=== PATIENT | male | born 2000 | race Caucasian/White ===

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

== ENCOUNTER 2019-03-27 17:53 | Emergency (ER) | payer BC ==
[2019-03-27] MEDS ORDERED: Sodium Chloride 0.9% 1,000 ML IV ONE ×2 (18:16→19:15)
[2019-03-27] MEDS ORDERED: Sodium Chloride 0.9% 2.5 ML Syringe FLUSH PRN ×2 (18:16→18:29)
[2019-03-27] MEDS ORDERED: Sodium Chloride 0.9% 10 ML Syringe FLUSH PRN ×2 (18:16→18:29)
--- NOTE | 2019-03-27 18:20 | EDM.PDOC ---
ED HPI GENERAL MEDICAL PROBLEM - General Chief Complaint: General Stated Complaint: NAUSEOUS,FATIGUE,DIZZY Time Seen by Provider: 03/27/19 18:04 - History of Present Illness INITIAL COMMENTS - FREE TEXT/NARRATIVE: HISTORY AND PHYSICAL: History of present illness: The patient is a 18-year-old male follows with Dr. 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 The patient says that in the past he used to get IV fluids almost on a daily basis and then over the last year he has made some adjustments and changes in his diet and his behavioral lifestyle that have prevented him from getting fluids very often. He says over the last month he's been under more stress with work and has been more run down and now presents with feeling dehydrated lightheaded. He has persistent nausea and that is not new or different and he is not concerned about that and he is not passing out or blacking out. He has a chronic headache which is not new or different and again he is not worried about this. He has no abdominal pain and he has had slightly darker urine output of late. He's had no chest pain shortness of breath fevers or chills no runny nose and no urinary symptoms of dysuria frequency or flank pain. He has not had diarrhea. The patient says he just has generalized weakness and thinks he needs IV fluids. The patient has a history of a port that we can access at the left upper chest wall which was placed specifically for IV hydration. No focal weakness numbness or tingling and has not had any falls. The patient says that he is not having any abdominal pain currently. Review of systems: As per history of present illness and below otherwise all systems reviewed and negative. Past medical history: As per history of present illness and as reviewed below otherwise noncontributory. Surgical history: As per history of present illness and as reviewed below otherwise noncontributory. Social history: No reported history of drug or alcohol abuse. Family history: As per history of present illness and as reviewed below otherwise noncontributory. Physical exam: General: Well-developed well-nourished thin man who is nontoxic and ambulated into the ED without assistance. He has overall pale appearance HEENT: Atraumatic, normocephalic, pupils reactive, negative for conjunctival pallor or scleral icterus, mucous membranes moist, throat clear, neck supple, nontender, trachea midline. Lungs: Clear to auscultation, breath sounds equal bilaterally, chest nontender. Heart: S1S2, regular rate and rhythm no overt murmurs Abdomen: Soft, nondistended, nontender. Negative for masses or hepatosplenomegaly. Negative for costovertebral tenderness. Pelvis: Stable nontender. Genitourinary: Deferred. Rectal: Deferred. Extremities: Atraumatic, negative for cords or calf pain. Neurovascular unremarkable. Full range of motion without defects or deficits Neuro: Awake, alert, oriented. Cranial nerves II through XII unremarkable. Cerebellum unremarkable. Motor and sensory unremarkable throughout. Exam nonfocal. Diagnostics: CBC CMP magnesium level UA with reflex Therapeutics: port Access, IV fluids Patient was offered Zofran for nausea and something for his headache pain and he declines both as he says this is not new or different and he just wants the hydration. Patient has almost completed his first liter of fluids and asecond liter as he says he still feels a sense of generalized weakness. I will proceed to order the second liter and plan on discharge after that. He is comfortable with the care plan and will follow up with his provider Impression: Generalized weakness/lightheadedness/clinical dehydration with history of frequent dehydration Definitive disposition and diagnosis as appropriate pending reevaluation and review of above. Headache Pain Score (Numeric/FACES): 6 - Related Data Allergies Allergy/AdvReac Type Severity Reaction Status Date / Time adhesive Allergy Hives Verified 03/27/19 18:10 clarithromycin [From Biaxin] Allergy Nausea and Verified 03/27/19 18:10 Vomiting diazepam [From Valium] Allergy Hallucinati Verified 03/27/19 18:10 ons grass pollen-perennial rye, Allergy Hives Verified 03/27/19 18:10 standar [grass poll-perennial rye,std] Latex, Natural Rubber Allergy skin Verified 03/27/19 18:10 sensitivity lorazepam [From Ativan] Allergy Hyperactivi Verified 03/27/19 18:10 ty midazolam HCl [From Versed] Allergy Hallucinati Verified 03/27/19 18:10 ons silver Allergy skin Verified 03/27/19 18:10 [From Tegaderm AG Mesh] sensitivity Sulfa (Sulfonamide Allergy Hyperactivi Verified 03/27/19 18:10 Antibiotics) ty Past Medical History Other HEENT History: wears glasses Other Cardiovascular History: irregular heartrate and irregular BP, rheumatic fever x3 Respiratory History: Denies: Bronchopulmonary Dysplasia, Interstitial Lung Disease Other Respiratory History: garza disease, SOB at times Gastrointestinal History: Reports: Bowel Obstruction, Gastritis Genitourinary History: Reports: None Musculoskeletal History: Reports: None Other Musculoskeletal History: GARZA, arthritis, auto immune disfunction Neurological History: Reports: Other (See Below) Other Neuro History: Frontal Lobe Damage. Spinal Cord Problem Psychiatric History: Reports: ADHD, Anxiety, Depression, Eating Disorders, Emotional Problems, Learning Disability, OCD, Panic Attack Other Psychiatric History: Slight Autism Endocrine/Metabolic History: Reports: None Other Endocrine/Metabolic History: Hypoglycemic Hematologic History: Reports: None Immunologic History: Reports: Immunosuppression Oncologic (Cancer) History: Reports: None Other Dermatologic History: sensitive to adhesives - Infectious Disease History Infectious Disease History: Reports: Chicken Pox, Hepatitis A - Past Surgical History HEENT Surgical History: Reports: Adenoidectomy, Tonsillectomy GI Surgical History: Reports: Cholecystectomy, Colonoscopy, EGD, Hernia, Inguinal, Hernia Repair/Other, Hamilton Fundoplication Social & Family History - Family History Family Medical History: Noncontributory - Caffeine Use Caffeine Use: Reports: Soda - Living Situation & Occupation Living situation: Reports: Single, with Family ED ROS GENERAL - Review of Systems Review Of Systems: ROS reveals no pertinent complaints other than HPI. ED EXAM, GENERAL - Physical Exam Exam: See Below (See dictation) Course - Vital Signs Last Recorded V/S: Last Vital Signs Temp 36.2 C 03/27/19 18:05 Pulse 75 03/27/19 19:11 Resp 18 03/27/19 19:11 BP 107/66 03/27/19 19:11 Pulse Ox 100 03/27/19 19:11 - Orders/Labs/Meds Orders: Active Orders 24 hr Category Date Time Status Implanted Port Access [RC] DAILY Care 03/27/19 18:16 Inactive Sodium Chloride 0.9% [Normal Saline] 1,000 ml Med 03/27/19 18:16 Active IV STAT Sodium Chloride 0.9% [Normal Saline] 1,000 ml Med 03/27/19 19:15 Ordered IV STAT Sodium Chloride 0.9% [Saline Flush] Med 03/27/19 18:16 Active 10 ml FLUSH ASDIRECTED PRN Sodium Chloride 0.9% [Saline Flush] Med 03/27/19 18:29 Active 10 ml FLUSH ASDIRECTED PRN Sodium Chloride 0.9% [Saline Flush] Med 03/27/19 18:16 Active 2.5 ml FLUSH ASDIRECTED PRN Sodium Chloride 0.9% [Saline Flush] Med 03/27/19 18:29 Active 2.5 ml FLUSH ASDIRECTED PRN Saline Lock Insert [OM.PC] Stat Oth 03/27/19 18:15 Ordered Saline Lock Insert [OM.PC] Stat Ot 03/27/19 18:29 Ordered Medication Orders Sodium Chloride (Normal Saline) 1,000 mls @ 999 mls/hr IV STAT ONE Stop: 03/27/19 19:16 Last Admin: 03/27/19 18:35 Dose: 999 mls/hr Sodium Chloride (Saline Flush) 10 ml FLUSH ASDIRECTED PRN PRN Reason: Keep Vein Open Last Admin: 03/27/19 18:36 Dose: 10 ml Sodium Chloride (Saline Flush) 2.5 ml FLUSH ASDIRECTED PRN PRN Reason: Keep Vein Open Last Admin: 03/27/19 18:36 Dose: 2.5 ml Sodium Chloride (Saline Flush) 10 ml FLUSH ASDIRECTED PRN PRN Reason: Keep Vein Open Last Admin: 03/27/19 18:36 Dose: 10 ml Sodium Chloride (Saline Flush) 2.5 ml FLUSH ASDIRECTED PRN PRN Reason: Keep Vein Open Last Admin: 03/27/19 18:37 Dose: 2.5 ml Labs: Laboratory Tests 03/27/19 03/27/19 03/27/19 Range/Units 18:25 18:25 18:34 WBC 5.81 (4.0-11.0) K/uL RBC 5.16 (4.50-5.90) M/uL Hgb 15.4 (13.0-17.0) g/dL Hct 44.9 (38.0-50.0) % MCV 87.0 (80.0-98.0) fL MCH 29.8 (27.0-32.0) pg MCHC 34.3 (31.0-37.0) g/dL RDW Std Deviation 41.7 (28.0-62.0) fl RDW Coeff of Mee 13 (11.0-15.0) % Plt Count 270 (150-400) K/uL MPV 10.10 (7.40-12.00) fL Neut % (Auto) 48.3 (48.0-80.0) % Lymph % (Auto) 34.1 (16.0-40.0) % Wright % (Auto) 16.7 H (0.0-15.0) % Eos % (Auto) 0.7 (0.0-7.0) % Baso % (Auto) 0.2 (0.0-1.5) % Neut # (Auto) 2.8 (1.4-5.7) K/uL Lymph # (Auto) 2.0 (0.6-2.4) K/uL Wright # (Auto) 1.0 H (0.0-0.8) K/uL Eos # (Auto) 0.0 (0.0-0.7) K/uL Baso # (Auto) 0.0 (0.0-0.1) K/uL Nucleated RBC % 0.0 /100WBC Nucleated RBCs # 0 K/uL Sodium 140 (136-148) mmol/L Potassium 3.6 (3.5-5.1) mmol/L Chloride 107 (98-107) mmol/L Carbon Dioxide 22.7 (21.0-32.0) mmol/L BUN 12 (7.0-18.0) mg/dL Creatinine 0.8 (0.8-1.3) mg/dL Est Cr Clr Drug Dosing TNP Estimated GFR (MDRD) > 60.0 ml/min Glucose 73 L (74-106) mg/dL Calcium 8.7 (8.5-10.1) mg/dL Magnesium 2.1 (1.8-2.4) mg/dL Total Bilirubin 0.6 (0.2-1.0) mg/dL AST 23 (15-37) IU/L ALT 16 (14-63) IU/L Alkaline Phosphatase 132 H (46-116) U/L Total Protein 6.9 (6.4-8.2) g/dL Albumin 4.0 (3.4-5.0) g/dL Globulin 2.9 (2.6-4.0) g/dL Albumin/Globulin Ratio 1.4 (0.9-1.6) Urine Color YELLOW Urine Appearance CLEAR Urine pH 7.0 (5.0-8.0) Ur Specific Sabinal 1.020 (1.001-1.035) Urine Protein NEGATIVE (NEGATIVE) mg/dL Urine Glucose (UA) NEGATIVE (NEGATIVE) mg/dL Urine Ketones NEGATIVE (NEGATIVE) mg/dL Urine Occult Blood NEGATIVE (NEGATIVE) Urine Nitrite NEGATIVE (NEGATIVE) Urine Bilirubin NEGATIVE (NEGATIVE) Urine Urobilinogen 1.0 (<2.0) EU/dL Ur Leukocyte Esterase NEGATIVE (NEGATIVE) Meds: Medications Generic Name Dose Route Start Last Admin Trade Name Freq PRN Reason Stop Dose Admin Sodium Chloride 1,000 mls @ 999 mls/hr 03/27/19 18:16 03/27/19 18:35 Normal Saline IV 03/27/19 19:16 999 mls/hr STAT ONE Administration Sodium Chloride 10 ml 03/27/19 18:16 03/27/19 18:36 Saline Flush FLUSH 10 ml ASDIRECTED PRN Administration Keep Vein Open Sodium Chloride 2.5 ml 03/27/19 18:16 03/27/19 18:36 Saline Flush FLUSH 2.5 ml ASDIRECTED PRN Administration Keep Vein Open Sodium Chloride 10 ml 03/27/19 18:29 03/27/19 18:36 Saline Flush FLUSH 10 ml ASDIRECTED PRN Administration Keep Vein Open Sodium Chloride 2.5 ml 03/27/19 18:29 03/27/19 18:37 Saline Flush FLUSH 2.5 ml ASDIRECTED PRN Administration Keep Vein Open Departure - Departure Time of Disposition: 19:16 Disposition: Home, Self-Care 01 Condition: Good Clinical Impression: Dehydration symptoms - Discharge Information Referrals: Lucila England DO [Primary Care Provider] - Forms: ED Department Discharge Additional Instructions: The following information is given to patients seen in the emergency department who are being discharged to home. This information is to outline your options for follow-up care. We provide all patients seen in our emergency department with a follow-up referral. The need for follow-up, as well as the timing and circumstances, are variable depending upon the specifics of your emergency department visit. If you don't have a primary care physician on staff, we will provide you with a referral. We always advise you to contact your personal physician following an emergency department visit to inform them of the circumstance of the visit and for follow-up with them and/or the need for any referrals to a consulting specialist. The emergency department will also refer you to a specialist when appropriate. This referral assures that you have the opportunity for followup care with a specialist. All of these measure are taken in an effort to provide you with optimal care, which includes your followup. Under all circumstances we always encourage you to contact your private physician who remains a resource for coordinating your care. When calling for followup care, please make the office aware that this follow-up is from your recent emergency room visit. If for any reason you are refused follow-up, please contact the emergency department at and ask to speak to the emergency department charge nurse. [address] [place] [address] England at the clinic and follow up with her as we discussed. Continue to push hydration and rest and return to ER as needed and as discussed - My Orders Last 24 Hours: My Active Orders 03/27/19 18:15 Saline Lock Insert [OM.PC] Stat 03/27/19 18:16 Implanted Port Access [RC] DAILY Sodium Chloride 0.9% [Normal Saline] 1,000 ml IV STAT Sodium Chloride 0.9% [Saline Flush] 10 ml FLUSH ASDIRECTED PRN Sodium Chloride 0.9% [Saline Flush] 2.5 ml FLUSH ASDIRECTED PRN 03/27/19 18:29 Sodium Chloride 0.9% [Saline Flush] 10 ml FLUSH ASDIRECTED PRN Sodium Chloride 0.9% [Saline Flush] 2.5 ml FLUSH ASDIRECTED PRN Saline Lock Insert [OM.PC] Stat 03/27/19 19:15 Sodium Chloride 0.9% [Normal Saline] 1,000 ml IV STAT - Assessment/Plan Last 24 Hours: My Active Orders 03/27/19 18:15 Saline Lock Insert [OM.PC] Stat 03/27/19 18:16 Implanted Port Access [RC] DAILY Sodium Chloride 0.9% [Normal Saline] 1,000 ml IV STAT Sodium Chloride 0.9% [Saline Flush] 10 ml FLUSH ASDIRECTED PRN Sodium Chloride 0.9% [Saline Flush] 2.5 ml FLUSH ASDIRECTED PRN 03/27/19 18:29 Sodium Chloride 0.9% [Saline Flush] 10 ml FLUSH ASDIRECTED PRN Sodium Chloride 0.9% [Saline Flush] 2.5 ml FLUSH ASDIRECTED PRN Saline Lock Insert [OM.PC] Stat 03/27/19 19:15 Sodium Chloride 0.9% [Normal Saline] 1,000 ml IV STAT
[2019-03-27 18:59] LABS: CHLORIDE,CL 107 mmol/L (98-107); SODIUM,NA 140 mmol/L (136-148)
[2019-03-27 20:34] VITALS: BP 101/64
== END 2019-03-27 20:37 | disposition home or self-care (01) ==
LOC: MW.ED 17:53
DX: E86.0 Dehydration (principal); Z88.8 Allergy status to other drugs, medicaments and biological substances; Z88.2 Allergy status to sulfonamides; Z91.040 Latex allergy status
CPT/HCPCS: 80053; 81003; 83735; 85025; 96360; 96361; 99283; J7040

== ENCOUNTER 2019-05-27 07:34 | Day surgery (SDC) | payer BC ==
[~2019-05-27 07:34] MED LIST: Bupivacaine 0.5% 10 ML SDV ONE; Lactated Ringers 1,000 ML IV SCH; Lidocaine 2% 5 ML SDV ONE; Propofol 200 MG/20 ML SDV ONE; fentaNYL 100 MCG/2 ML SDV ONE
--- NOTE | 2019-05-27 07:56 | PCM.PREANE ---
Preanesthetic Assessment - Anesthesia/Transfusion/Family Hx Anesthesia History: Prior Anesthesia Reaction Other Type of Anesthesia Reaction Comment: very agitated from Valium, Versed Transfusion History: No Prior Transfusion(s) - Review of Systems General: No Symptoms Pulmonary: No Symptoms Cardiovascular: No Symptoms Gastrointestinal: No Symptoms Neurological: No Symptoms Other: Reports: None - Physical Assessment NPO Status Date: 05/26/19 NPO Status Time: 23:00 Height: 6 ft Weight: 57.153 kg ASA Class: 2 Mental Status: Alert & Oriented x3 Airway Class: Mallampati = 2 Dentition: Reports: Normal Dentition Thyro-Mental Finger Breadths: 3 Mouth Opening Finger Breadths: 3 ROM/Head Extension: Full Lungs: Clear to Auscultation, Normal Respiratory Effort Cardiovascular: Regular Rate, Regular Rhythm - Allergies Allergies/Adverse Reactions: Allergies Allergy/AdvReac Type Severity Reaction Status Date / Time adhesive Allergy Hives Verified 05/20/19 15:32 clarithromycin [From Biaxin] Allergy Nausea and Verified 05/20/19 15:32 Vomiting diazepam [From Valium] Allergy Hyperactivi Verified 05/20/19 15:32 ty grass pollen-perennial rye, Allergy Hives Verified 03/27/19 18:10 standar [grass poll-perennial rye,std] Latex, Natural Rubber Allergy skin Verified 05/20/19 15:32 sensitivity lorazepam [From Ativan] Allergy Hyperactivi Verified 05/20/19 15:32 ty midazolam HCl [From Versed] Allergy Hyperactivi Verified 05/20/19 15:32 ty silver Allergy skin Verified 05/20/19 15:32 [From Tegaderm AG Mesh] sensitivity Sulfa (Sulfonamide Allergy Hyperactivi Verified 03/27/19 18:10 Antibiotics) ty - Acknowledgements Anesthesia Type Planned: General Anesthesia, MAC Pt an Appropriate Candidate for the Planned Anesthesia: Yes Alternatives and Risks of Anesthesia Discussed w Pt/Guardian: Yes Pt/Guardian Understands and Agrees with Anesthesia Plan: Yes PreAnesthesia Questionnaire HEENT History: Reports: Other (See Below) Other HEENT History: wears glasses Cardiovascular History: Reports: Other (See Below) Other Cardiovascular History: Postural Orthostatic Tachycardia Syndrome, states he has a "low blood volume", hx of Rheumatic fever x3 as a child - "broke the blood brain barrier" causing extreme joint pain Respiratory History: Reports: Asthma Other Respiratory History: hx of asthma as a child, rarely uses inhaler now Gastrointestinal History: Reports: Cholelithiasis, GERD, Hiatal Hernia Genitourinary History: Reports: None Musculoskeletal History: Reports: Back Pain, Chronic, Neck Pain, Chronic, RA Other Musculoskeletal History: OCAMPO, arthritis, auto immune disfunction Neurological History: Reports: Migraines, Other (See Below) Other Neuro History: has a "pocket of fluid" at C3-7, hx of motion sickness Psychiatric History: Reports: Anxiety, Depression Other Psychiatric History: Slight Autism Endocrine/Metabolic History: Reports: Other (See Below) Other Endocrine/Metabolic History: hx of hypoglycemia Hematologic History: Reports: Anemia Immunologic History: Reports: Immunosuppression Oncologic (Cancer) History: Reports: None Other Dermatologic History: sensitive to adhesives - Infectious Disease History Infectious Disease History: Reports: Chicken Pox, Hepatitis A - Past Surgical History Head Surgeries/Procedures: Reports: None HEENT Surgical History: Reports: Tonsillectomy Cardiovascular Surgical History: Reports: Vascular Surgery Other Cardiovascular Surgeries/Procedures: Insertion of Port-a-Cath GI Surgical History: Reports: Cholecystectomy, Hamilton Fundoplication - SUBSTANCE USE Smoking Status *Q: Never Smoker Recreational Drug Use History: No - HOME MEDS Home Medications: Home Meds Almotriptan Malate 6.25 mg PO ASDIRECTED PRN MDD 12.5 mg 05/20/19 [History] Amoxicillin 500 mg PO BID 05/20/19 [History] Amphetamine/Dextroamphetamine [Adderall XR] 20 mg PO QAM 05/20/19 [History] Cyproheptadine HCl 4 mg PO QID 05/20/19 [History] Fludrocortisone [Florinef] 0.1 mg PO ACBREAKFAST 05/20/19 [History] Ibuprofen 200 mg PO ASDIRECTED PRN 05/20/19 [History] Levalbuterol Tartrate [Xopenex Hfa] 1 puff INH Q4H PRN 05/20/19 [History] Midodrine 5 mg PO TID 05/20/19 [History] Ondansetron HCl [Zofran] 4 mg PO Q4H PRN 05/20/19 [History] SUMAtriptan [Sumatriptan] 1 spray TRACIE ASDIRECTED PRN 05/20/19 [History] - CURRENT (IN HOUSE) MEDS Current Meds: Current Medications Lactated Ringer's (Ringers, Lactated) 1,000 mls @ 125 mls/hr IV ASDIRECTED SHAKEEL Discontinued Medications Bupivacaine HCl (Sensorcaine-Mpf 0.5%) Confirm Administered Dose 10 ml .ROUTE .STK-MED ONE Stop: 05/27/19 07:23 Fentanyl (Sublimaze) Confirm Administered Dose 100 mcg .ROUTE .STK-MED ONE Stop: 05/27/19 07:15 Lidocaine HCl (Xylocaine-Mpf 1%) Confirm Administered Dose 10 mls @ as directed .ROUTE .STK-MED ONE Stop: 05/27/19 07:23 Lidocaine (Xylocaine-Mpf 2%) Confirm Administered Dose 5 ml .ROUTE .STK-MED ONE Stop: 05/27/19 07:15 Propofol (Diprivan 20 Ml) Confirm Administered Dose 400 mg .ROUTE .STK-MED ONE Stop: 05/27/19 07:15
[2019-05-27] MEDS ORDERED: Propofol 200 MG/20 ML SDV ONE ×2 (08:12→08:23)
[2019-05-27] MEDS ORDERED: Octyl 2-Cyanoacrylate 1 Tube ONE (08:15)
--- NOTE | 2019-05-27 08:57 | PCM.OPNOTE ---
- General Post-Op/Procedure Note Date of Surgery/Procedure: 05/27/19 Operative Procedure(s): Removal of Bard port Pre Op Diagnosis: Desire for a Bard port removal. History of postural orthostatic tachycardia syndrome Post-Op Diagnosis: Same Anesthesia Technique: Local, MAC (ASA II) Primary Surgeon: Louie Senior Family Service Counselor: Lissette Burch Fluid Replacement, Intraop: 1,100 EBL in mLs: 5 Condition: Good Free Text/Narrative:: DICTATION [id number] CPT CODE [id number]
[2019-05-27] MEDS ORDERED: Lactated Ringers 1,000 ML IV SCH (09:00)
[2019-05-27 09:51] VITALS: BP 115/64
--- NOTE | 2019-05-27 13:08 | OR ---
SURGEON: Louie Senior M.D. DATE OF PROCEDURE: 05/27/2019 OPERATION PERFORMED: Removal of Bard port. ANESTHESIA: Local MAC. ASA CLASSIFICATION: II. PREOPERATIVE DIAGNOSIS: Desire for Bard port removal. POSTOPERATIVE DIAGNOSIS: Desire for Bard port removal. ESTIMATED BLOOD LOSS: 5 mL. INTRAOPERATIVE FLUID REPLACEMENT: 1100 mL of crystalloid. DESCRIPTION OF PROCEDURE: The patient was taken to the operating room and placed on the operating table in the supine position. Time-out was called for appropriate identification of the patient and procedure. Monitored anesthesia care was provided. The left chest was sterilely prepped. After sterile draping, skin incision had been marked out directly over the port. The skin was now infiltrated with 5 mL of 1% Xylocaine and 8 mL of 0.5% Marcaine solution. The skin incision was made and deepened down to the port, which was circumferentially dissected free. The port was then removed along with the catheter. Pressure was held for 2 minutes. There was no bleeding through the catheter site. Small bleeding sites were electrocoagulated. The incision was then closed in 2 layers approximating the subcutaneous tissue with 3-0 Vicryl and the skin with subcuticular 4-0 Monocryl. Because of the patient's allergies, the wound was dressed with Dermabond. Sponge, needle, and instrument counts were all correct. Following emergence from anesthesia, the patient was taken to recovery room in stable condition. ABHISHEK LEDEZMA /[id number]
== END 2019-05-27 10:10 | disposition home or self-care (01) ==
LOC: MW.SDS 07:34
PROVIDERS: ATTEND Surgery
DX: Z45.2 Encounter for adjustment and management of vascular access device (principal); J45.909 Unspecified asthma, uncomplicated; K21.9 Gastro-esophageal reflux disease without esophagitis; M06.9 Rheumatoid arthritis, unspecified; G43.909 Migraine, unspecified, not intractable, without status migrainosus; Z91.048 Other nonmedicinal substance allergy status; Z88.2 Allergy status to sulfonamides; Z88.1 Allergy status to other antibiotic agents; Z91.040 Latex allergy status; Z79.2 Long term (current) use of antibiotics; Z79.899 Other long term (current) drug therapy; Z79.52 Long term (current) use of systemic steroids
CPT/HCPCS: 36590; A9270; J2001; J2704; J3010; J3490; J7120

== ENCOUNTER 2019-09-08 21:11 | Emergency (ER) | payer SELFPAY ==
[2019-09-08] MEDS ORDERED: Sodium Chloride 0.9% 1,000 ML IV ONE (21:36)
--- NOTE | 2019-09-08 21:42 | EDM.PDOC ---
ED HPI GENERAL MEDICAL PROBLEM - General Chief Complaint: General Stated Complaint: FATIGUE, FEELING DEHYDRATED Time Seen by Provider: 09/08/19 21:24 Source of Information: Reports: Patient History Limitations: Reports: No Limitations - History of Present Illness INITIAL COMMENTS - FREE TEXT/NARRATIVE: HISTORY AND PHYSICAL: History of present illness: Patient is a 18-year-old male presents to the ED today with concern of dehydration. Patient states he has a history of pots and several other autonomic dysfunction that patient is not sure of the names of and which she has issues with dehydration. Patient states that he's been trying to drink more water but has not been able to stay hydrated. Patient states he's had to have received IV fluids daily in his past when he was first diagnosed with his autonomic dysfunction. Patient states back then he would feel tired and run down. Patient states over the past 1-2 has felt more tired and run down which was similar to how he felt when he needed IV fluids prior. Patient states he also feels like his mouth is dry. Patient denies any other symptoms or concerns Patient denies fever, chills, chest pain, shortness of breath, or cough. Denies headache, neck stiff ness, change in vision, syncope, or near syncope. Denies nausea, vomiting, abdominal pain, diarrhea, constipation, or dysuria. Has not noted any blood in urine or stool. Patient has been eating and drinking appropriately. Review of systems: As per history of present illness and below otherwise all systems reviewed and negative. Past medical history: As per history of present illness and as reviewed below otherwise noncontributory. Surgical history: As per history of present illness and as reviewed below otherwise noncontributory. Social history: See social history for further information Family history: As per history of present illness and as reviewed below otherwise noncontributory. Physical exam: General: Patient is alert, oriented, and in no acute distress. Patient sitting comfortably on exam table. HEENT: Atraumatic, normocephalic, pupils equal and reactive bilaterally, negative for conjunctival pallor or scleral icterus, mucous membranes dry, TMs normal bilaterally, throat clear, neck supple, nontender, trachea midline. No drooling or trismus noted. No meningeal signs. No hot potato voice noted. Lungs: Clear to auscultation, breath sounds equal bilaterally, chest nontender. Heart: S1S2, regular rate and rhythm without overt murmur Abdomen: Soft, nondistended, nontender. Negative for masses or hepatosplenomegaly. Negative for costovertebral tenderness. Pelvis: Stable nontender. Genitourinary: Deferred. Rectal: Deferred. Skin: Intact, warm, dry. No lesions or rashes noted. Extremities: Atraumatic, negative for cords or calf pain. Neurovascular unremarkable. Neuro: Awake, alert, oriented. Cranial nerves II through XII unremarkable. Cerebellum unremarkable. Motor and sensory unremarkable throughout. Exam nonfocal. Notes: Patient expresses resolution of symptoms with therapeutics today. Discussed the importance for follow-up with a primary care provider Voices understanding and is agreeable to plan of care. Denies any further questions or concerns at this time. Diagnostics: CBC, CMP, UA, lipase, CPK Therapeutics: Saline Prescription: None Impression: Dehydration Medical screening exam Plan: 1. Encouraged pushing fluids to prevent dehydration. 2. Follow-up with your primary care provider as discussed. Return to the ED as needed and as discussed. 3. You can alternate ibuprofen and Tylenol as directed for pain and discomfort. Definitive disposition and diagnosis as appropriate pending reevaluation and review of above. body Pain Score (Numeric/FACES): 5 - Related Data Allergies Allergy/AdvReac Type Severity Reaction Status Date / Time adhesive Allergy Hives Verified 09/08/19 21:30 clarithromycin [From Biaxin] Allergy Nausea and Verified 09/08/19 21:30 Vomiting diazepam [From Valium] Allergy Hyperactivi Verified 09/08/19 21:30 ty grass pollen-perennial rye, Allergy Hives Verified 09/08/19 21:30 standar [grass poll-perennial rye,std] Latex, Natural Rubber Allergy skin Verified 09/08/19 21:30 sensitivity lorazepam [From Ativan] Allergy Hyperactivi Verified 09/08/19 21:30 ty midazolam HCl [From Versed] Allergy Hyperactivi Verified 09/08/19 21:30 ty silver Allergy skin Verified 09/08/19 21:30 [From Tegaderm AG Mesh] sensitivity Sulfa (Sulfonamide Allergy Hyperactivi Verified 09/08/19 21:30 Antibiotics) ty Home Meds: Home Meds Almotriptan Malate 6.25 mg PO ASDIRECTED PRN MDD 12.5 mg 06/28/19 [History] Amphetamine/Dextroamphetamine [Adderall XR] 20 mg PO QAM 05/20/19 [History] Cyproheptadine HCl 4 mg PO QID 05/20/19 [History] Fludrocortisone [Florinef] 0.1 mg PO ACBREAKFAST 05/20/19 [History] Levalbuterol Tartrate [Xopenex Hfa] 1 puff INH Q4H PRN 05/20/19 [History] Midodrine 5 mg PO TID 05/20/19 [History] SUMAtriptan [Sumatriptan] 1 spray TRACIE ASDIRECTED PRN 05/20/19 [History] Past Medical History HEENT History: Reports: Impaired Vision, Other (See Below) Other HEENT History: wears glasses Cardiovascular History: Reports: Other (See Below) Other Cardiovascular History: Postural Orthostatic Tachycardia Syndrome, states he has a "low blood volume", hx of Rheumatic fever x3 as a child - "broke the blood brain barrier" causing extreme joint pain Respiratory History: Reports: Asthma Other Respiratory History: hx of asthma as a child, rarely uses inhaler now Gastrointestinal History: Reports: Cholelithiasis, GERD, Hiatal Hernia Genitourinary History: Reports: None Musculoskeletal History: Reports: Back Pain, Chronic, Neck Pain, Chronic, RA Other Musculoskeletal History: OCAMPO, arthritis, auto immune disfunction Neurological History: Reports: Migraines, Other (See Below) Other Neuro History: has a "pocket of fluid" at C3-7, hx of motion sickness Psychiatric History: Reports: Anxiety, Depression Other Psychiatric History: Slight Autism Endocrine/Metabolic History: Reports: Other (See Below) Other Endocrine/Metabolic History: hx of hypoglycemia Hematologic History: Reports: Anemia Immunologic History: Reports: Immunosuppression Oncologic (Cancer) History: Reports: None Other Dermatologic History: sensitive to adhesives - Infectious Disease History Infectious Disease History: Reports: Chicken Pox, Hepatitis A - Past Surgical History Head Surgeries/Procedures: Reports: None HEENT Surgical History: Reports: Tonsillectomy Cardiovascular Surgical History: Reports: Vascular Surgery Other Cardiovascular Surgeries/Procedures: Insertion of Port-a-Cath GI Surgical History: Reports: Cholecystectomy, Hamilton Fundoplication Social & Family History - Family History Family Medical History: Noncontributory - Tobacco Use Smoking Status *Q: Never Smoker - Caffeine Use Caffeine Use: Reports: Soda - Recreational Drug Use Recreational Drug Use: No - Living Situation & Occupation Living situation: Reports: Single, with Family ED ROS GENERAL - Review of Systems Review Of Systems: ROS reveals no pertinent complaints other than HPI. ED EXAM, GENERAL - Physical Exam Exam: See Below (See dictation) Course - Vital Signs Last Recorded V/S: Last Vital Signs Temp 97.2 F 09/08/19 21:21 Pulse 78 09/08/19 21:21 Resp 18 09/08/19 21:21 BP 120/73 09/08/19 21:21 Pulse Ox 99 09/08/19 21:21 - Orders/Labs/Meds Orders: Active Orders 24 hr Category Date Time Status Sodium Chloride 0.9% [Normal Saline] 1,000 ml Med 09/08/19 21:36 Active IV BOLUS Medication Orders Sodium Chloride (Normal Saline) 1,000 mls @ 999 mls/hr IV BOLUS ONE Stop: 09/08/19 22:36 Last Admin: 09/08/19 21:43 Dose: 999 mls/hr Labs: Laboratory Tests 09/08/19 09/08/19 09/08/19 Range/Units 21:43 21:43 21:43 WBC 8.46 (4.0-11.0) K/uL RBC 4.83 (4.50-5.90) M/uL Hgb 14.5 (13.0-17.0) g/dL Hct 41.8 (38.0-50.0) % MCV 86.5 (80.0-98.0) fL MCH 30.0 (27.0-32.0) pg MCHC 34.7 (31.0-37.0) g/dL RDW Std Deviation 39.8 (28.0-62.0) fl RDW Coeff of Mee 13 (11.0-15.0) % Plt Count 275 (150-400) K/uL MPV 9.50 (7.40-12.00) fL Neut % (Auto) 53.8 (48.0-80.0) % Lymph % (Auto) 31.4 (16.0-40.0) % Power % (Auto) 12.1 (0.0-15.0) % Eos % (Auto) 2.5 (0.0-7.0) % Baso % (Auto) 0.2 (0.0-1.5) % Neut # (Auto) 4.6 (1.4-5.7) K/uL Lymph # (Auto) 2.7 H (0.6-2.4) K/uL Power # (Auto) 1.0 H (0.0-0.8) K/uL Eos # (Auto) 0.2 (0.0-0.7) K/uL Baso # (Auto) 0.0 (0.0-0.1) K/uL Nucleated RBC % 0.0 /100WBC Nucleated RBCs # 0 K/uL Sodium 140 (136-148) mmol/L Potassium 3.6 (3.5-5.1) mmol/L Chloride 105 (98-107) mmol/L Carbon Dioxide 23.5 (21.0-32.0) mmol/L BUN 10 (7.0-18.0) mg/dL Creatinine 0.9 (0.8-1.3) mg/dL Est Cr Clr Drug Dosing 107.22 mL/min Estimated GFR (MDRD) > 60.0 ml/min Glucose 105 (74-106) mg/dL Calcium 9.0 (8.5-10.1) mg/dL Total Bilirubin 0.4 (0.2-1.0) mg/dL AST 23 (15-37) IU/L ALT 16 (14-63) IU/L Alkaline Phosphatase 123 H (46-116) U/L Creatine Kinase (26-308) U/L Total Protein 7.1 (6.4-8.2) g/dL Albumin 3.8 (3.4-5.0) g/dL Globulin 3.3 (2.6-4.0) g/dL Albumin/Globulin Ratio 1.2 (0.9-1.6) Lipase 83 (73-393) U/L Urine Color YELLOW Urine Appearance CLEAR Urine pH 6.5 (5.0-8.0) Ur Specific Hu[place] <= 1.005 (1.001-1.035) Urine Protein NEGATIVE (NEGATIVE) mg/dL Urine Glucose (UA) NEGATIVE (NEGATIVE) mg/dL Urine Ketones NEGATIVE (NEGATIVE) mg/dL Urine Occult Blood NEGATIVE (NEGATIVE) Urine Nitrite NEGATIVE (NEGATIVE) Urine Bilirubin NEGATIVE (NEGATIVE) Urine Urobilinogen 0.2 (<2.0) EU/dL Ur Leukocyte Esterase NEGATIVE (NEGATIVE) 09/08/19 Range/Units 21:43 WBC (4.0-11.0) K/uL RBC (4.50-5.90) M/uL Hgb (13.0-17.0) g/dL Hct (38.0-50.0) % MCV (80.0-98.0) fL MCH (27.0-32.0) pg MCHC (31.0-37.0) g/dL RDW Std Deviation (28.0-62.0) fl RDW Coeff of Mee (11.0-15.0) % Plt Count (150-400) K/uL MPV (7.40-12.00) fL Neut % (Auto) (48.0-80.0) % Lymph % (Auto) (16.0-40.0) % Power % (Auto) (0.0-15.0) % Eos % (Auto) (0.0-7.0) % Baso % (Auto) (0.0-1.5) % Neut # (Auto) (1.4-5.7) K/uL Lymph # (Auto) (0.6-2.4) K/uL Power # (Auto) (0.0-0.8) K/uL Eos # (Auto) (0.0-0.7) K/uL Baso # (Auto) (0.0-0.1) K/uL Nucleated RBC % /100WBC Nucleated RBCs # K/uL Sodium (136-148) mmol/L Potassium (3.5-5.1) mmol/L Chloride (98-107) mmol/L Carbon Dioxide (21.0-32.0) mmol/L BUN (7.0-18.0) mg/dL Creatinine (0.8-1.3) mg/dL Est Cr Clr Drug Dosing mL/min Estimated GFR (MDRD) ml/min Glucose (74-106) mg/dL Calcium (8.5-10.1) mg/dL Total Bilirubin (0.2-1.0) mg/dL AST (15-37) IU/L ALT (14-63) IU/L Alkaline Phosphatase (46-116) U/L Creatine Kinase 175 (26-308) U/L Total Protein (6.4-8.2) g/dL Albumin (3.4-5.0) g/dL Globulin (2.6-4.0) g/dL Albumin/Globulin Ratio (0.9-1.6) Lipase (73-393) U/L Urine Color Urine Appearance Urine pH (5.0-8.0) Ur Specific Hulett (1.001-1.035) Urine Protein (NEGATIVE) mg/dL Urine Glucose (UA) (NEGATIVE) mg/dL Urine Ketones (NEGATIVE) mg/dL Urine Occult Blood (NEGATIVE) Urine Nitrite (NEGATIVE) Urine Bilirubin (NEGATIVE) Urine Urobilinogen (<2.0) EU/dL Ur Leukocyte Esterase (NEGATIVE) Meds: Medications Generic Name Dose Route Start Last Admin Trade Name Freq PRN Reason Stop Dose Admin Sodium Chloride 1,000 mls @ 999 mls/hr 09/08/19 21:36 09/08/19 21:43 Normal Saline IV 09/08/19 22:36 999 mls/hr BOLUS ONE Administration Departure - Departure Time of Disposition: 22:34 Disposition: Home, Self-Care 01 Clinical Impression: Dehydration, Encounter for medical screening examination - Discharge Information Referrals: Lucila England DO [Primary Care Provider] - Forms: ED Department Discharge Additional Instructions: The following information is given to patients seen in the emergency department who are being discharged to home. This information is to outline your options for follow-up care. We provide all patients seen in our emergency department with a follow-up referral. The need for follow-up, as well as the timing and circumstances, are variable depending upon the specifics of your emergency department visit. If you don't have a primary care physician on staff, we will provide you with a referral. We always advise you to contact your personal physician following an emergency department visit to inform them of the circumstance of the visit and for follow-up with them and/or the need for any referrals to a consulting specialist. The emergency department will also refer you to a specialist when appropriate. This referral assures that you have the opportunity for follow-up care with a specialist. All of these measure are taken in an effort to provide you with optimal care, which includes your follow-up. Under all circumstances we always encourage you to contact your private physician who remains a resource for coordinating your care. When calling for follow-up care, please make the office aware that this follow-up is from your recent emergency room visit. If for any reason you are refused follow-up, please contact the Emergency Department at and asked to speak to the emergency department charge nurse. Primary Care [address] [place] [address] [facility] [address] [place] [id number] 1. Encouraged pushing fluids to prevent dehydration. 2. Follow-up with your primary care provider as discussed. Return to the ED as needed and as discussed. 3. You can alternate ibuprofen and Tylenol as directed for pain and discomfort. - My Orders Last 24 Hours: My Active Orders 09/08/19 21:36 Sodium Chloride 0.9% [Normal Saline] 1,000 ml IV BOLUS - Assessment/Plan Last 24 Hours: My Active Orders 09/08/19 21:36 Sodium Chloride 0.9% [Normal Saline] 1,000 ml IV BOLUS
[2019-09-08 22:11] LABS: BLOOD UREA NITROGEN,BUN 10 mg/dL (7.0-18.0); CARBON DIOXIDE,CO2 23.5 mmol/L (21.0-32.0); CHLORIDE,CL 105 mmol/L (98-107); GLUCOSE RANDOM 105 mg/dL (74-106); LIPASE 83 U/L (73-393); POTASSIUM,K 3.6 mmol/L (3.5-5.1); SODIUM,NA 140 mmol/L (136-148)
[2019-09-08 22:45] VITALS: BP 113/71; PULSE 77
== END 2019-09-08 22:46 | disposition home or self-care (01) ==
LOC: MW.ED 21:11
DX: E86.0 Dehydration (principal); J45.909 Unspecified asthma, uncomplicated; Z79.899 Other long term (current) drug therapy; Z88.1 Allergy status to other antibiotic agents; Z88.4 Allergy status to anesthetic agent; Z88.2 Allergy status to sulfonamides; Z88.8 Allergy status to other drugs, medicaments and biological substances; Z91.040 Latex allergy status; Z91.048 Other nonmedicinal substance allergy status
CPT/HCPCS: 80053; 81003; 82550; 83690; 85025; 96360; 99283; J7040

== ENCOUNTER 2019-10-22 01:07 | Emergency (ER) | payer BC, OTHER ==
[2019-10-22] MEDS ORDERED: Sodium Chloride 0.9% 500 ML IV ONE (01:10)
--- NOTE | 2019-10-22 01:14 | EDM.PDOC ---
ED HPI GENERAL MEDICAL PROBLEM - General Chief Complaint: Drug or Alcohol Abuse Stated Complaint: INTOXICATION Time Seen by Provider: 10/22/19 01:07 - History of Present Illness INITIAL COMMENTS - FREE TEXT/NARRATIVE: HISTORY AND PHYSICAL: History of present illness: Patient's 19-year-old white male history of Pots who was drinking tonight and developed nausea and vomiting presents by paramedics and received IV fluids and Zofran on arrival here patient's markedly improved his nausea is resolved he doesn't now she was drinking white Russians tonight and attributes his nausea vomiting and presentation to this patient's alert and oriented 3 with no complaints requests notification parents for transport home. Review of systems: As per history of present illness and below otherwise all systems reviewed and negative. Past medical history: As per history of present illness and as reviewed below otherwise noncontributory. Surgical history: As per history of present illness and as reviewed below otherwise noncontributory. Social history: No reported history of drug or alcohol abuse. Family history: As per history of present illness and as reviewed below otherwise noncontributory. Physical exam: HEENT: Atraumatic, normocephalic, pupils reactive, negative for conjunctival pallor or scleral icterus, mucous membranes moist, throat clear, neck supple, nontender, trachea midline. Lungs: Clear to auscultation, breath sounds equal bilaterally, chest nontender. Heart: S1S2, regular, negative for clicks, rubs, or JVD. Abdomen: Soft, nondistended, nontender. Negative for masses or hepatosplenomegaly. Negative for costovertebral tenderness. Pelvis: Stable nontender. Genitourinary: Deferred. Rectal: Deferred. Extremities: Atraumatic, negative for cords or calf pain. Neurovascular unremarkable. Neuro: Awake, alert, oriented. Cranial nerves II through XII unremarkable. Cerebellum unremarkable. Motor and sensory unremarkable throughout. Exam nonfocal. Diagnostics: Deferred Therapeutics: Saline 1 L bolus Impression: #1 ethanol abuse #2 history of pots #3 medical screening exam Definitive disposition and diagnosis as appropriate pending reevaluation and review of above. - Related Data Allergies Allergy/AdvReac Type Severity Reaction Status Date / Time adhesive Allergy Hives Verified 10/22/19 01:10 clarithromycin [From Biaxin] Allergy Nausea and Verified 10/22/19 01:10 Vomiting diazepam [From Valium] Allergy Hyperactivi Verified 10/22/19 01:10 ty grass pollen-perennial rye, Allergy Hives Verified 10/22/19 01:10 standar [grass poll-perennial rye,std] Latex, Natural Rubber Allergy skin Verified 10/22/19 01:10 sensitivity lorazepam [From Ativan] Allergy Hyperactivi Verified 10/22/19 01:10 ty midazolam HCl [From Versed] Allergy Hyperactivi Verified 10/22/19 01:10 ty silver Allergy skin Verified 10/22/19 01:10 [From Tegaderm AG Mesh] sensitivity Sulfa (Sulfonamide Allergy Hyperactivi Verified 10/22/19 01:10 Antibiotics) ty Home Meds: Home Meds Almotriptan Malate 6.25 mg PO ASDIRECTED PRN MDD 12.5 mg 05/20/19 [History] Amphetamine/Dextroamphetamine [Adderall XR] 20 mg PO QAM 05/20/19 [History] Cyproheptadine HCl 4 mg PO QID 05/20/19 [History] Fludrocortisone [Florinef] 0.1 mg PO ACBREAKFAST 05/20/19 [History] Levalbuterol Tartrate [Xopenex Hfa] 1 puff INH Q4H PRN 05/20/19 [History] Midodrine 5 mg PO TID 05/20/19 [History] SUMAtriptan [Sumatriptan] 1 spray TRACIE ASDIRECTED PRN 05/20/19 [History] Past Medical History HEENT History: Reports: Impaired Vision, Other (See Below) Other HEENT History: wears glasses Cardiovascular History: Reports: Other (See Below) Other Cardiovascular History: Postural Orthostatic Tachycardia Syndrome, states he has a "low blood volume", hx of Rheumatic fever x3 as a child - "broke the blood brain barrier" causing extreme joint pain Respiratory History: Reports: Asthma Other Respiratory History: hx of asthma as a child, rarely uses inhaler now Gastrointestinal History: Reports: Cholelithiasis, GERD, Hiatal Hernia Genitourinary History: Reports: None Musculoskeletal History: Reports: Back Pain, Chronic, Neck Pain, Chronic, RA Other Musculoskeletal History: OCAMPO, arthritis, auto immune disfunction Neurological History: Reports: Migraines, Other (See Below) Other Neuro History: has a "pocket of fluid" at C3-7, hx of motion sickness Psychiatric History: Reports: Anxiety, Depression Other Psychiatric History: Slight Autism Endocrine/Metabolic History: Reports: Other (See Below) Other Endocrine/Metabolic History: hx of hypoglycemia Hematologic History: Reports: Anemia Immunologic History: Reports: Immunosuppression Oncologic (Cancer) History: Reports: None Other Dermatologic History: sensitive to adhesives - Infectious Disease History Infectious Disease History: Reports: Chicken Pox, Hepatitis A - Past Surgical History Head Surgeries/Procedures: Reports: None HEENT Surgical History: Reports: Tonsillectomy Cardiovascular Surgical History: Reports: Vascular Surgery Other Cardiovascular Surgeries/Procedures: Insertion of Port-a-Cath GI Surgical History: Reports: Cholecystectomy, Hamilton Fundoplication Social & Family History - Family History Family Medical History: Noncontributory - Caffeine Use Caffeine Use: Reports: Soda - Living Situation & Occupation Living situation: Reports: Single, with Family ED ROS GENERAL - Review of Systems Review Of Systems: Comprehensive ROS is negative, except as noted in HPI. ED EXAM, GENERAL - Physical Exam Exam: See Below (dictation) Course - Orders/Labs/Meds Orders: Active Orders 24 hr Category Date Time Status Sodium Chloride 0.9% [Normal Saline] 500 ml Med 10/22/19 01:10 Active IV .BOLUS Medication Orders Sodium Chloride (Normal Saline) 500 mls @ 999 mls/hr IV .BOLUS ONE Stop: 10/22/19 01:40 Meds: Medications Generic Name Dose Route Start Last Admin Trade Name Freq PRN Reason Stop Dose Admin Sodium Chloride 500 mls @ 999 mls/hr 10/22/19 01:10 Normal Saline IV 10/22/19 01:40 .BOLUS ONE Departure - Departure Time of Disposition: 01:13 Disposition: Home, Self-Care 01 Condition: Good Clinical Impression: Alcohol abuse, Pott disease, Encounter for medical screening examination - Discharge Information Additional Instructions: The following information is given to patients seen in the emergency department who are being discharged to home. This information is to outline your options for follow-up care. We provide all patients seen in our emergency department with a follow-up referral. The need for follow-up, as well as the timing and circumstances, are variable depending upon the specifics of your emergency department visit. If you don't have a primary care physician on staff, we will provide you with a referral. We always advise you to contact your personal physician following an emergency department visit to inform them of the circumstance of the visit and for follow-up with them and/or the need for any referrals to a consulting specialist. The emergency department will also refer you to a specialist when appropriate. This referral assures that you have the opportunity for followup care with a specialist. All of these measure are taken in an effort to provide you with optimal care, which includes your followup. Under all circumstances we always encourage you to contact your private physician who remains a resource for coordinating your care. When calling for followup care, please make the office aware that this follow-up is from your recent emergency room visit. If for any reason you are refused follow-up, please contact the [facility] emergency department at and asked to speak to the emergency department charge nurse. Push fluids continue current medications follow primary medical doctor return as needed as discussed avoid alcohol - My Orders Last 24 Hours: My Active Orders 10/22/19 01:10 Sodium Chloride 0.9% [Normal Saline] 500 ml IV .BOLUS - Assessment/Plan Last 24 Hours: My Active Orders 10/22/19 01:10 Sodium Chloride 0.9% [Normal Saline] 500 ml IV .BOLUS
[2019-10-22 02:23] VITALS: BP 105/65; PULSE 104
== END 2019-10-22 02:00 | disposition home or self-care (01) ==
LOC: MW.ED 01:07
DX: F10.10 Alcohol abuse, uncomplicated (principal); A18.01 Tuberculosis of spine; J45.909 Unspecified asthma, uncomplicated; Y90.9 Presence of alcohol in blood, level not specified; Z88.1 Allergy status to other antibiotic agents; Z88.2 Allergy status to sulfonamides; Z88.8 Allergy status to other drugs, medicaments and biological substances; Z91.048 Other nonmedicinal substance allergy status; Z91.040 Latex allergy status
CPT/HCPCS: 96360; 99284; J7040; 99282

== ENCOUNTER 2020-12-26 16:31 | Emergency (ER) | payer BC ==
[2020-12-26] MEDS ORDERED: Sodium Chloride 0.9% 1,000 ML IV ONE (17:47)
--- NOTE | 2020-12-26 18:12 | PCM.EKG ---
#1 Interpretation EKG Date: 12/26/20 EKG Interpretation Comments: Heart rate = 66 bpm, normal sinus rhythm, normal QRS interval, no STEMI. EKG and rhythm strip interpreted by me at [id number]
--- NOTE | 2020-12-26 18:21 | CR ---
INDICATION: Syncope TECHNIQUE: Chest 1 view COMPARISON: 07/15/2017 FINDINGS: Cardiovascular and mediastinum: Heart size and vasculature are normal in caliber and appearance. Lungs and pleural spaces: Lungs are clear. No sign of infiltrate or mass. No sign of pleural effusion. No pneumothorax. Bones and soft tissues: No significant findings. IMPRESSION: No acute or significant findings. Dictated by Luke Bryant MD @ Dec 26 2020 6:18PM Signed by Dr. Luke Brynat @ Dec 26 2020 6:20PM
[2020-12-26 18:29] LABS: BLOOD UREA NITROGEN,BUN 13 mg/dL (7.0-18.0); CARBON DIOXIDE,CO2 26.2 mmol/L (21.0-32.0); CHLORIDE,CL 105 mmol/L (98-107); GLUCOSE RANDOM 85 mg/dL (74-106); SODIUM,NA 141 mmol/L (136-148)
--- NOTE | 2020-12-26 19:07 | EDM.PDOC ---
ED HPI GENERAL MEDICAL PROBLEM - General Chief Complaint: General Stated Complaint: Near Syncope Time Seen by Provider: 12/26/20 17:08 Source of Information: Reports: Patient History Limitations: Reports: No Limitations - History of Present Illness INITIAL COMMENTS - FREE TEXT/NARRATIVE: HISTORY AND PHYSICAL: History of present illness: Patient is a 20-year-old male who presents to the ED today with concern of exacerbation of his POTS syndrome. Patient states that he has an extensive history with Postural Orthostatic Tachycardia Syndrome (POTS) and he used to require daily IV fluids throughout port. Patient states he has not been having issues and has been able to maintain his fluid intake over the past 2 years and had his port removed. Patient states that over the past 1 week, he has had an increased amount of life stressors that have decreased his appetite and he has been not been able to keep up with his fluid demands. Patient states that he is having increased near syncope episodes and states that he had a near syncope episode just before prior to arrival to the emergency room which made him concerned so he came to receive fluids. Patient states when his POTS used to be more severe, he used to have frequent near syncope or occasional syncopal episodes. Patient states that he has been near syncope free for 2 years and states that the increase in frequency of these again is concerning to him. Patient denies any head injury or trauma and states that each time, he has been able to lower himself to the floor. Patient denies any other associated sy mptoms. Patient denies fever, chills, chest pain, shortness of breath, or cough. Denies headache, neck stiff ness, change in vision, syncope. Denies nausea, vomiting, abdominal pain, diarrhea, constipation, or dysuria. Has not noted any blood in urine or stool. Patient has been eating and drinking appropriately. Review of systems: As per history of present illness and below otherwise all systems reviewed and negative. Past medical history: As per history of present illness and as reviewed below otherwise noncontributory. Surgical history: As per history of present illness and as reviewed below otherwise noncontributory. Social history: See social history for further information Family history: As per history of present illness and as reviewed below otherwise noncontributory. Physical exam: General: Patient is alert, oriented, and in no acute distress. Patient sitting comfortably on exam table. Vitals stable and reviewed by me. HEENT: Atraumatic, normocephalic, pupils equal and reactive bilaterally, negative for conjunctival pallor or scleral icterus, mucous membranes moist, TMs normal bilaterally, throat clear, neck supple, nontender, trachea midline. No drooling or trismus noted. No meningeal signs. No hot potato voice noted. Lungs: Clear to auscultation, breath sounds equal bilaterally, chest nontender. Heart: S1S2, regular rate and rhythm without overt murmur Abdomen: Soft, nondistended, nontender. Negative for masses or hepatosplenomegaly. Negative for costovertebral tenderness. Pelvis: Stable nontender. Genitourinary: Deferred. Rectal: Deferred. Skin: Intact, warm, dry. No lesions or rashes noted. Extremities: Atraumatic, negative for cords or calf pain. Neurovascular unremarkable. Neuro: Awake, alert, oriented. Cranial nerves II through XII unremarkable. Cerebellum unremarkable. Motor and sensory unremarkable throughout. Exam nonfocal. Notes: Signs and symptoms that would prompt return to the ED thoroughly discussed with patient. Discussed importance for follow-up with a primary care provider. Voices understanding and is agreeable to plan of care. Denies any further questions or concerns at this time. Diagnostics: EKG, CBC, CMP, UA, chest x-ray, troponin Therapeutics: Normal saline Prescription: None Impression: Near syncope Postural Orthostatic Tachycardia Syndrome Plan: 1. Encourage small but frequent sips of fluid to prevent dehydration. 2. Follow-up with your primary care provider as discussed. Return to the ED as needed and as discussed. Definitive disposition and diagnosis as appropriate pending reevaluation and review of above. - Related Data Allergies Allergy/AdvReac Type Severity Reaction Status Date / Time adhesive Allergy Hives Verified 12/26/20 16:57 clarithromycin [From Biaxin] Allergy Nausea and Verified 12/26/20 16:57 Vomiting diazepam [From Valium] Allergy Hyperactivi Verified 12/26/20 16:57 ty grass pollen-perennial rye, Allergy Hives Verified 12/26/20 16:57 standar [grass poll-perennial rye,std] Latex, Natural Rubber Allergy skin Verified 12/26/20 16:57 sensitivity lorazepam [From Ativan] Allergy Hyperactivi Verified 12/26/20 16:57 ty midazolam HCl [From Versed] Allergy Hyperactivi Verified 12/26/20 16:57 ty silver Allergy skin Verified 12/26/20 16:57 [From Tegaderm AG Mesh] sensitivity Sulfa (Sulfonamide Allergy Hyperactivi Verified 12/26/20 16:57 Antibiotics) ty Home Meds: Home Meds . [No Known Home Meds] 12/26/20 [History] Past Medical History HEENT History: Reports: Impaired Vision, Other (See Below) Other HEENT History: wears glasses Cardiovascular History: Reports: Other (See Below) Other Cardiovascular History: Postural Orthostatic Tachycardia Syndrome, states he has a "low blood volume", hx of Rheumatic fever x3 as a child - "broke the blood brain barrier" causing extreme joint pain Respiratory History: Reports: Asthma Other Respiratory History: hx of asthma as a child, rarely uses inhaler now Gastrointestinal History: Reports: Cholelithiasis, GERD, Hiatal Hernia Genitourinary History: Reports: None Musculoskeletal History: Reports: Back Pain, Chronic, Neck Pain, Chronic, RA Other Musculoskeletal History: OCAMPO, arthritis, auto immune disfunction Neurological History: Reports: Migraines, Other (See Below) Other Neuro History: has a "pocket of fluid" at C3-7, hx of motion sickness Psychiatric History: Reports: Anxiety, Depression Other Psychiatric History: Slight Autism Endocrine/Metabolic History: Reports: Other (See Below) Other Endocrine/Metabolic History: hx of hypoglycemia Hematologic History: Reports: Anemia Immunologic History: Reports: Immunosuppression Oncologic (Cancer) History: Reports: None Other Dermatologic History: sensitive to adhesives - Infectious Disease History Infectious Disease History: Reports: Chicken Pox, Hepatitis A - Past Surgical History Head Surgeries/Procedures: Reports: None HEENT Surgical History: Reports: Tonsillectomy Cardiovascular Surgical History: Reports: Vascular Surgery Other Cardiovascular Surgeries/Procedures: Insertion of Port-a-Cath GI Surgical History: Reports: Cholecystectomy, Hamilton Fundoplication Social & Family History - Family History Family Medical History: No Pertinent Family History - Caffeine Use Caffeine Use: Reports: Soda - Recreational Drug Use Recreational Drug Use: Yes Recreational Drug Type: Reports: Marijuana/Hashish Recreational Drug Use Frequency: Socially - Living Situation & Occupation Living situation: Reports: Single, with Family ED ROS GENERAL - Review of Systems Review Of Systems: Comprehensive ROS is negative, except as noted in HPI. ED EXAM, GENERAL - Physical Exam Exam: See Below (see dictation) Course - Vital Signs Last Recorded V/S: Last Vital Signs Temp 99.1 F 12/26/20 16:58 Pulse 99 12/26/20 16:58 Resp 18 12/26/20 16:58 BP 139/60 12/26/20 16:58 Pulse Ox 97 12/26/20 16:58 - Orders/Labs/Meds Orders: Active Orders 24 hr Category Date Time Status EKG Documentation Completion [RC] STAT Care 12/26/20 17:47 Active UA RFX HOLLY AND CULT IF INDIC [URIN] Stat Lab 12/26/20 18:54 Received Labs: Laboratory Tests 12/26/20 12/26/20 Range/Units 18:00 18:00 WBC 6.61 (4.0-11.0) K/uL RBC 5.01 (4.50-5.90) M/uL Hgb 15.1 (13.0-17.0) g/dL Hct 44.0 (38.0-50.0) % MCV 87.8 (80.0-98.0) fL MCH 30.1 (27.0-32.0) pg MCHC 34.3 (31.0-37.0) g/dL RDW Std Deviation 39.1 (28.0-62.0) fl RDW Coeff of Mee 12 (11.0-15.0) % Plt Count 270 (150-400) K/uL MPV 9.60 (7.40-12.00) fL Neut % (Auto) 53.6 (48.0-80.0) % Lymph % (Auto) 32.1 (16.0-40.0) % [place] % (Auto) 12.4 (0.0-15.0) % Eos % (Auto) 1.7 (0.0-7.0) % Baso % (Auto) 0.2 (0.0-1.5) % Neut # (Auto) 3.6 (1.4-5.7) K/uL Lymph # (Auto) 2.1 (0.6-2.4) K/uL [place] # (Auto) 0.8 (0.0-0.8) K/uL Eos # (Auto) 0.1 (0.0-0.7) K/uL Baso # (Auto) 0.0 (0.0-0.1) K/uL Nucleated RBC % 0.0 /100WBC Nucleated RBCs # 0 K/uL Sodium 141 (136-148) mmol/L Potassium 4.0 (3.5-5.1) mmol/L Chloride 105 (98-107) mmol/L Carbon Dioxide 26.2 (21.0-32.0) mmol/L BUN 13 (7.0-18.0) mg/dL Creatinine 0.9 (0.8-1.3) mg/dL Est Cr Clr Drug Dosing 123.90 mL/min Estimated GFR (MDRD) > 60.0 ml/min Glucose 85 (74-106) mg/dL Calcium 9.1 (8.5-10.1) mg/dL Total Bilirubin 0.6 (0.2-1.0) mg/dL AST 20 (15-37) IU/L ALT 25 (14-63) IU/L Alkaline Phosphatase 92 (46-116) U/L Troponin I < 0.050 (0.000-0.056) ng/mL Total Protein 7.2 (6.4-8.2) g/dL Albumin 4.2 (3.4-5.0) g/dL Globulin 3.0 (2.6-4.0) g/dL Albumin/Globulin Ratio 1.4 (0.9-1.6) Meds: Medications Discontinued Medications Generic Name Dose Route Start Last Admin Trade Name Freq PRN Reason Stop Dose Admin Sodium Chloride 1,000 mls @ 999 mls/hr 12/26/20 17:47 12/26/20 17:55 Normal Saline IV 12/26/20 18:47 999 mls/hr BOLUS ONE Administration Departure - Departure Time of Disposition: 19:06 Disposition: Home, Self-Care 01 Clinical Impression: Near syncope, POTS (postural orthostatic tachycardia syndrome) - Discharge Information Instructions: Syncope, [id number] Referrals: Lucila England DO [Primary Care Provider] - Forms: ED Department Discharge Additional Instructions: The following information is given to patients seen in the emergency department who are being discharged to home. This information is to outline your options for follow-up care. We provide all patients seen in our emergency department with a follow-up referral. The need for follow-up, as well as the timing and circumstances, are variable depending upon the specifics of your emergency department visit. If you don't have a primary care physician on staff, we will provide you with a referral. We always advise you to contact your personal physician following an emergency department visit to inform them of the circumstance of the visit and for follow-up with them and/or the need for any referrals to a consulting specialist. The emergency department will also refer you to a specialist when appropriate. This referral assures that you have the opportunity for follow-up care with a sp ecialist. All of these measure are taken in an effort to provide you with optimal care, which includes your follow-up. Under all circumstances we always encourage you to contact your private physicia n who remains a resource for coordinating your care. When calling for follow-up care, please make the office aware that this follow-up is from your recent emergency room visit. If for any reason you are refused follow-up, please contact the [facility] Emergency Department at and asked to speak to the emergency department charge nurse. [facility] [address] [place] [address] [place] [address] 1. Encourage small but frequent sips of fluid to prevent dehydration. 2. Follow-up with your primary care provider as discussed. Return to the ED as needed and as discussed. Sepsis Event Note (ED) - Evaluation Sepsis Screening Result: No Definite Risk - Focused Exam Vital Signs: Vital Signs Temp Pulse Resp BP Pulse Ox 12/26/20 16:58 99.1 F 99 18 139/60 97 - My Orders Last 24 Hours: My Active Orders 12/26/20 17:47 EKG Documentation Completion [RC] STAT 12/26/20 18:54 UA RFX HOLLY AND CULT IF INDIC [URIN] Stat - Assessment/Plan Last 24 Hours: My Active Orders 12/26/20 17:47 EKG Documentation Completion [RC] STAT 12/26/20 18:54 UA RFX HOLLY AND CULT IF INDIC [URIN] Stat
[2020-12-26 19:25] VITALS: BP 117/79; PULSE 73
== END 2020-12-26 19:20 | disposition home or self-care (01) ==
LOC: MW.ED 16:31
DX: R55 Syncope and collapse (principal); I49.8 Other specified cardiac arrhythmias; Z88.8 Allergy status to other drugs, medicaments and biological substances; Z88.1 Allergy status to other antibiotic agents; Z91.048 Other nonmedicinal substance allergy status; Z91.040 Latex allergy status; Z88.2 Allergy status to sulfonamides
CPT/HCPCS: 36415; 71045; 80053; 81003; 84484; 85025; 93005; 99285; J7030; 93010; 99284

== ENCOUNTER 2021-01-14 18:38 | Emergency (ER) | payer BC ==
[2021-01-14] MEDS ORDERED: Sodium Chloride 0.9% 1,000 ML IV ONE (19:26)
[2021-01-14] MEDS ORDERED: Sodium Chloride 0.9% 10 ML Syringe FLUSH PRN (19:26)
[2021-01-14] MEDS ORDERED: Sodium Chloride 0.9% 2.5 ML Syringe FLUSH PRN (19:26)
--- NOTE | 2021-01-14 19:34 | EDM.PDOC ---
ED HPI GENERAL MEDICAL PROBLEM - General Chief Complaint: Lower Extremity Injury/Pain Stated Complaint: ARMS AND LEGS CRAMPING, DIFFICULTY BREATHING Time Seen by Provider: 01/14/21 19:18 - History of Present Illness INITIAL COMMENTS - FREE TEXT/NARRATIVE: HISTORY AND PHYSICAL: History of present illness: This is a 20-year-old gentleman with a history significant for pots syndrome, malabsorption disorder that is required multiple admissions in the past for hydration and is also required a Port-A-Cath which has been recently removed, status post cholecystectomy, status post fundoplication as a child, who has had a recent diagnosis of coronavirus approximately 2 months ago, who presents ER today secondary to cramping to his upper and lower extremities, some shortness of breath and concerns regarding blood clot in his lungs. Patient reports he is never had a DVT or PE in the past however he was reading and Internet that he is at increased risk for blood clots with his coronavirus. Patient denies any lower extremity edema, cough, hemoptysis. Patient reports that although his pulse ox in the ED is 99% on room air, he reports that it dipped down to 90% at 1 point at home with a heart rate of 50. Patient denies any recent fevers, shakes, chills, nausea, vomiting, diarrhea, dysuria, frequency, urgency. Patient reports that due to his malabsorption syndrome he always has loose stools but his stool volume and frequency has not changed. Patient denies any chest pain, URI symptoms, cough, hemoptysis, calf tenderness, lower extremity edema. Review of systems: As per history of present illness and below otherwise all systems reviewed and negative. Past medical history: As per history of present illness and as reviewed below otherwise noncontributory. Surgical history: As per history of present illness and as reviewed below otherwise noncontributory. Social history: No reported history of drug or alcohol abuse. Family history: As per history of present illness and as reviewed below otherwise no ncontributory. Physical exam: This patient was seen and evaluated during the 2019 SARS-CoV-2 novel coronavirus pandemic period. Community viral transmission is ongoing at time of this encounter and the emergency department is operating under pandemic response procedures. Constitutional: Patient is oriented to person, place, and time. Appears well- developed and well-nourished. No distress. HEENT: Moist mucous membranes Head: Normocephalic and atraumatic Eyes: Right eye exhibits no discharge. Left eye exhibits no discharge. No scleral icterus Neck: Normal range of motion. No tracheal deviation present. Cardiovascular: Normal rate and regular rhythm. Pulmonary: Effort normal, no respiratory distress. No wheezing rales or rhonchi, speaking in full sentences, Abdominal: No distention, nontender, Musculoskeletal: Normal range of motion Neurologic: Alert and oriented to person, place and time. Skin: [place], warm and dry. Psychiatric: Normal mood and affect. Behavior is normal. Judgment and thought content normal. Nursing note and vital signs have been reviewed Patient's ER physical exam is significant for no calf tenderness or swelling. Lungs are clear without any wheezing rales or rhonchi. Patient's vital signs were within normal limits with a heart rate of 72 and a pulse oximeter of 99% on room air. Diagnostics: CBC, CMP, magnesium, D-dimer EKG: As interpreted by ER physician: Isadora: Nonspecific ST-T wave abnormalities Normal axis No evidence of ST elevation NH Normal sinus rhythm heart rate of 69 Chest Xray: Normal cardiac silhouette No infiltrates or effusions identified. No PTX No evidence of acute bony fracture. As interpreted by ER MD: [employer]: NSS x1 L Assessment and plan: This is a 20-year-old gentleman who presents ER today secondary to upper and lower extremity muscle cramping. Patient reports that he does have a history of malabsorption syndrome in the past but has been doing well and has not had any significant episodes of vomiting or change in his stool. Patient reports that he does not feel clinically dehydrated. Patient reports his greatest concern is possible DVT/PE. Have discussed with the patient that his exam is low risk but given that he has had coronavirus approximately 2 months ago I would be happy to check a D-dimer on him. Patient is appreciative of this plan and is in agreement to receive IV fluids and we will check his chest x-ray and EKG secondary to his episodes of shortness of breath. In the ED, the patient does not appear to be short of breath and has a pulse ox of 99% on room air. 9:27 PM: Patient's is remained clinically and hemodynamically stable here in the ED. Patient did have an episode where is complaining of some headache which he was treated with Toradol. Patient received adequate analgesia from the Toradol. Patient has been receiving NSS here in the ED. Patient's chest x-ray was unremarkable. Patient's labs were all been within normal limits. Patient with normal CBC, CMP. Etiology of the patient's symptoms are unclear. Patient is not present with any signs or symptoms of be concerning for DVT or PE at this time. Patient has received 1 L of normal saline and does feel much improved. Reassessment at the time of disposition demonstrates that the patient is in no acute distress. The patient has remained stable throughout the entire ED visit and is without objective evidence for acute process requiring urgent intervention or hospitalization. The patient is stable for discharge, counseling is provided as documented above, discussed symptomatic treatment and specific conditions for return. I have spoken with the patient/caregiver and discussed todays findings, in addition to providing specific details for the plan of care. Questions are ans wered and there is agreement with the plan. Definitive disposition and diagnosis as appropriate pending reevaluation and review of above. arms/legs Pain Score (Numeric/FACES): 7 - Related Data Allergies Allergy/AdvReac Type Severity Reaction Status Date / Time adhesive Allergy Hives Verified 01/14/21 19:17 clarithromycin [From Biaxin] Allergy Nausea and Verified 01/14/21 19:17 Vomiting diazepam [From Valium] Allergy Hyperactivi Verified 01/14/21 19:17 ty grass pollen-perennial rye, Allergy Hives Verified 01/14/21 19:17 standar [grass poll-perennial rye,std] Latex, Natural Rubber Allergy skin Verified 01/14/21 19:17 sensitivity lorazepam [From Ativan] Allergy Hyperactivi Verified 01/14/21 19:17 ty midazolam HCl [From Versed] Allergy Hyperactivi Verified 01/14/21 19:17 ty silver Allergy skin Verified 01/14/21 19:17 [From Tegaderm AG Mesh] sensitivity Sulfa (Sulfonamide Allergy Hyperactivi Verified 01/14/21 19:17 Antibiotics) ty Home Meds: Home Meds . [No Known Home Meds] 12/26/20 [History] Past Medical History HEENT History: Reports: Impaired Vision, Other (See Below) Other HEENT History: wears glasses Cardiovascular History: Reports: Other (See Below) Other Cardiovascular History: Postural Orthostatic Tachycardia Syndrome, states he has a "low blood volume", hx of Rheumatic fever x3 as a child - "broke the blood brain barrier" causing extreme joint pain Respiratory History: Reports: Asthma Other Respiratory History: hx of asthma as a child, rarely uses inhaler now Gastrointestinal History: Reports: Cholelithiasis, GERD, Hiatal Hernia Genitourinary History: Reports: None Musculoskeletal History: Reports: Back Pain, Chronic, Neck Pain, Chronic, RA Other Musculoskeletal History: OCAMPO, arthritis, auto immune disfunction Neurological History: Reports: Migraines, Other (See Below) Other Neuro History: has a "pocket of fluid" at C3-7, hx of motion sickness Psychiatric History: Reports: Anxiety, Depression Other Psychiatric History: Slight Autism Endocrine/Metabolic History: Reports: Other (See Below) Other Endocrine/Metabolic History: hx of hypoglycemia Hematologic History: Reports: Anemia Immunologic History: Reports: Immunosuppression Oncologic (Cancer) History: Reports: None Other Dermatologic History: sensitive to adhesives - Infectious Disease History Infectious Disease History: Reports: Chicken Pox, Hepatitis A, Novel Coronavirus - Past Surgical History Head Surgeries/Procedures: Reports: None HEENT Surgical History: Reports: Tonsillectomy Cardiovascular Surgical History: Reports: Vascular Surgery Other Cardiovascular Surgeries/Procedures: Insertion of Port-a-Cath GI Surgical History: Reports: Cholecystectomy, [place] Fundoplication Social & Family History - Family History Family Medical History: No Pertinent Family History - Tobacco Use Packs/Tins Daily: 1 - Caffeine Use Caffeine Use: Reports: None - Recreational Drug Use Recreational Drug Use: Yes Recreational Drug Type: Reports: Marijuana/Hashish - Living Situation & Occupation Living situation: Reports: Single, with Family Review of Systems - Review of Systems Review Of Systems: See Below ED EXAM, GENERAL - Physical Exam Exam: See Below Course - Vital Signs Last Recorded V/S: Last Vital Signs Temp 98 F 01/14/21 21:41 Pulse 63 01/14/21 21:57 Resp 16 01/14/21 21:57 BP 104/69 01/14/21 21:57 Pulse Ox 98 01/14/21 21:57 - Orders/Labs/Meds Orders: Active Orders 24 hr Category Date Time Status Saline Lock Insert [OM.PC] Stat Oth 01/14/21 19:26 Ordered Labs: Laboratory Tests 01/14/21 01/14/21 01/14/21 Range/Units 20:00 20:00 20:00 WBC 6.03 (4.0-11.0) K/uL RBC 5.15 (4.50-5.90) M/uL Hgb 15.4 (13.0-17.0) g/dL Hct 44.5 (38.0-50.0) % MCV 86.4 (80.0-98.0) fL MCH 29.9 (27.0-32.0) pg MCHC 34.6 (31.0-37.0) g/dL RDW Std Deviation 38.3 (28.0-62.0) fl RDW Coeff of Mee 12 (11.0-15.0) % Plt Count 265 (150-400) K/uL MPV 9.70 (7.40-12.00) fL Neut % (Auto) 55.5 (48.0-80.0) % Lymph % (Auto) 32.7 (16.0-40.0) % [place] % (Auto) 10.9 (0.0-15.0) % Eos % (Auto) 0.7 (0.0-7.0) % Baso % (Auto) 0.2 (0.0-1.5) % Neut # (Auto) 3.4 (1.4-5.7) K/uL Lymph # (Auto) 2.0 (0.6-2.4) K/uL [place] # (Auto) 0.7 (0.0-0.8) K/uL Eos # (Auto) 0.0 (0.0-0.7) K/uL Baso # (Auto) 0.0 (0.0-0.1) K/uL Nucleated RBC % 0.0 /100WBC Nucleated RBCs # 0 K/uL D-Dimer, Quantitative < 0.19 (0.0-0.50) mg/L FEU Sodium 136 (136-148) mmol/L Potassium 3.5 (3.5-5.1) mmol/L Chloride 101 (98-107) mmol/L Carbon Dioxide 24.6 (21.0-32.0) mmol/L BUN 14 (7.0-18.0) mg/dL Creatinine 1.0 (0.8-1.3) mg/dL Est Cr Clr Drug Dosing 85.49 mL/min Estimated GFR (MDRD) > 60.0 ml/min Glucose 113 H (74-106) mg/dL POC Glucose (60-110) mg/dL Calcium 9.1 (8.5-10.1) mg/dL Magnesium 1.9 (1.8-2.4) mg/dL Total Bilirubin 1.0 (0.2-1.0) mg/dL AST 21 (15-37) IU/L ALT 23 (14-63) IU/L Alkaline Phosphatase 89 (46-116) U/L Total Protein 7.2 (6.4-8.2) g/dL Albumin 4.1 (3.4-5.0) g/dL Globulin 3.1 (2.6-4.0) g/dL Albumin/Globulin Ratio 1.3 (0.9-1.6) 01/14/21 Range/Units 20:04 WBC (4.0-11.0) K/uL RBC (4.50-5.90) M/uL Hgb (13.0-17.0) g/dL Hct (38.0-50.0) % MCV (80.0-98.0) fL MCH (27.0-32.0) pg MCHC (31.0-37.0) g/dL RDW Std Deviation (28.0-62.0) fl RDW Coeff of Mee (11.0-15.0) % Plt Count (150-400) K/uL MPV (7.40-12.00) fL Neut % (Auto) (48.0-80.0) % Lymph % (Auto) (16.0-40.0) % [place] % (Auto) (0.0-15.0) % Eos % (Auto) (0.0-7.0) % Baso % (Auto) (0.0-1.5) % Neut # (Auto) (1.4-5.7) K/uL Lymph # (Auto) (0.6-2.4) K/uL [place] # (Auto) (0.0-0.8) K/uL Eos # (Auto) (0.0-0.7) K/uL Baso # (Auto) (0.0-0.1) K/uL Nucleated RBC % /100WBC Nucleated RBCs # K/uL D-Dimer, Quantitative (0.0-0.50) mg/L FEU Sodium (136-148) mmol/L Potassium (3.5-5.1) mmol/L Chloride (98-107) mmol/L Carbon Dioxide (21.0-32.0) mmol/L BUN (7.0-18.0) mg/dL Creatinine (0.8-1.3) mg/dL Est Cr Clr Drug Dosing mL/min Estimated GFR (MDRD) ml/min Glucose (74-106) mg/dL POC Glucose 113 H (60-110) mg/dL Calcium (8.5-10.1) mg/dL Magnesium (1.8-2.4) mg/dL Total Bilirubin (0.2-1.0) mg/dL AST (15-37) IU/L ALT (14-63) IU/L Alkaline Phosphatase (46-116) U/L Total Protein (6.4-8.2) g/dL Albumin (3.4-5.0) g/dL Globulin (2.6-4.0) g/dL Albumin/Globulin Ratio (0.9-1.6) Meds: Medications Discontinued Medications Generic Name Dose Route Start Last Admin Trade Name Freq PRN Reason Stop Dose Admin Sodium Chloride 1,000 mls @ 999 mls/hr 01/14/21 19:26 01/14/21 20:00 Normal Saline IV 01/14/21 20:26 999 mls/hr .Bolus ONE Administration Ketorolac Tromethamine 30 mg 01/14/21 20:47 01/14/21 21:39 Toradol IVPUSH 01/14/21 20:48 30 mg ONETIME ONE Administration Sodium Chloride 10 ml 01/14/21 19:26 01/14/21 20:02 Saline Flush FLUSH 10 ml ASDIRECTED PRN Administration Keep Vein Open Sodium Chloride 2.5 ml 01/14/21 19:26 01/14/21 20:02 Saline Flush FLUSH 2.5 ml ASDIRECTED PRN Administration Keep Vein Open Departure - Departure Time of Disposition: 21:29 Disposition: Home, Self-Care 01 Condition: Good Clinical Impression: Musculoskeletal pain, Dyspnea Headache Qualifiers: Headache type: unspecified Headache chronicity pattern: unspecified pattern Intractability: not intractable Qualified Code(s): R51 - Headache - Discharge Information Instructions: Shortness of Breath, Adult, [id number], General Headache Without Cause, Musculoskeletal Pain Referrals: Lucila England DO [Primary Care Provider] - Forms: ED Department Discharge Additional Instructions: Your seen and evaluated the ER today secondary to your symptoms of headache, muscle cramping and pain, and shortness of breath. The work-up in the emergency department revealed a normal chest x-ray and EKG. Your D-dimer which is a test that we check for blood clots was normal. All your electrolytes including your sodium, potassium, magnesium, kidney function and liver tests were all normal. Your hemoglobin and your white blood cell count or normal as well. Etiology of your symptoms at this time are unclear. You have been given 1 L of normal saline to assist you with hydration and Toradol to assist you with your pain. Please make an appointment to see your family doctor tomorrow to be reevaluated for your symptoms. At this time we are not identifying any acute/emergent cause for your symptoms. The following information is given to patients seen in the emergency department who are being discharged to home. This information is to outline your options for follow-up care. We provide all patients seen in our emergency department with a follow-up referral. The need for follow-up, as well as the timing and circumstances, are variable depending upon the specifics of your emergency department visit. If you don't have a primary care physician on staff, we will provide you with a referral. We always advise you to contact your personal physician following an emergency department visit to inform them of the circumstance of the visit and for follow-up with them and/or the need for any referrals to a consulting specialist. The emergency department will also refer you to a specialist when appropriate. This referral assures that you have the opportunity for follow-up care with a specialist. All of these measure are taken in an effort to provide you with optimal care, which includes your follow-up. Under all circumstances we always encourage you to contact your private physician who remains a resource for coordinating your care. When calling for follow-up care, please make the office aware that this follow-up is from your recent emergency room visit. If for any reason you are refused follow-up, please contact the [facility] Emergency Department at and asked to speak to the emergency department charge nurse. Mumtaz Parikh [facility] - [facility] [address] [place] [address] [facility] [address] [place] [id number] Sepsis Event Note (ED) - Evaluation Sepsis Screening Result: No Definite Risk - Focused Exam Vital Signs: Vital Signs Temp Pulse Resp BP Pulse Ox 01/14/21 21:57 63 16 104/69 98 01/14/21 21:41 98 F 75 16 102/63 100 01/14/21 19:10 97.8 F 96 16 94/56 L 96 - My Orders Last 24 Hours: My Active Orders 01/14/21 19:26 Saline Lock Insert [OM.PC] Stat - Assessment/Plan Last 24 Hours: My Active Orders 01/14/21 19:26 Saline Lock Insert [OM.PC] Stat
--- NOTE | 2021-01-14 20:22 | CR ---
Indication: Shortness of breath Technique: Chest 1 view Comparison: December 26, 2019 Findings/Impression: Cardiovascular and mediastinum: Heart size and vasculature are normal in caliber and appearance. Mediastinum is within normal limits. Lungs and pleural space: Lungs are hyperexpanded. No sign of infiltrate or mass. No sign of pleural effusion. No pneumothorax. Bones and soft tissues: No significant findings. Dictated by Yocasta Parks MD @ Jan 14 2021 8:19PM Signed by Dr. Yocasta Parks @ Jan 14 2021 8:20PM
[2021-01-14] MEDS ORDERED: Ketorolac 30 MG/ML SDV IVPUSH ONE (20:47)
[2021-01-14 20:48] LABS: BLOOD UREA NITROGEN,BUN 14 mg/dL (7.0-18.0); CARBON DIOXIDE,CO2 24.6 mmol/L (21.0-32.0); CHLORIDE,CL 101 mmol/L (98-107); GLUCOSE RANDOM 113 mg/dL (74-106); POTASSIUM,K 3.5 mmol/L (3.5-5.1); SODIUM,NA 136 mmol/L (136-148)
[2021-01-14 22:03] VITALS: BP 104/69; PULSE 63
== END 2021-01-14 22:00 | disposition home or self-care (01) ==
LOC: MW.ED 18:38
DX: R06.00 Dyspnea, unspecified (principal); R51.9 Headache, unspecified; M79.604 Pain in right leg; M79.605 Pain in left leg; M79.641 Pain in right hand; M79.642 Pain in left hand; Z72.0 Tobacco use; Z88.8 Allergy status to other drugs, medicaments and biological substances; Z88.1 Allergy status to other antibiotic agents; Z88.5 Allergy status to narcotic agent; Z88.2 Allergy status to sulfonamides; Z91.040 Latex allergy status
CPT/HCPCS: 36415; 71045; 80053; 82962; 83735; 85025; 85379; 93005; 96374; 99285; J1885; J7030

== ENCOUNTER 2021-08-10 12:53 | Emergency (ER) | payer BC, SELFPAY ==
[2021-08-10] MEDS ORDERED: Sodium Chloride 0.9% 2.5 ML Syringe FLUSH PRN (12:56)
[2021-08-10] MEDS ORDERED: Sodium Chloride 0.9% 10 ML Syringe FLUSH PRN (12:56)
[2021-08-10] MEDS ORDERED: Sodium Chloride 0.9% 1,000 ML IV ONE (12:57)
--- NOTE | 2021-08-10 12:59 | EDM.PDOC ---
ED HPI GENERAL MEDICAL PROBLEM - General Chief Complaint: Gastrointestinal Problem Stated Complaint: VOMITTING, NAUSEA Time Seen by Provider: 08/10/21 12:54 - History of Present Illness INITIAL COMMENTS - FREE TEXT/NARRATIVE: 20-year-old male history of POTS and autonomic dysregulation presenting with palpitations and diffuse body static "like TV static." Patient had a bachelor constitution party last night he smoked a significant amount of marijuana and drank a significant amount of alcohol. He passed out sometime around midnight and since waking up this had the symptoms. No chest pain no shortness of breath no syncope no abdominal pain some nausea and vomiting. Symptoms constant stable no alleviating factors radiation or other associated symptoms. abd Pain Score (Numeric/FACES): 4 - Related Data Allergies Allergy/AdvReac Type Severity Reaction Status Date / Time adhesive Allergy Hives Verified 01/14/21 19:17 clarithromycin [From Biaxin] Allergy Nausea and Verified 01/14/21 19:17 Vomiting diazepam [From Valium] Allergy Hyperactivi Verified 01/14/21 19:17 ty grass pollen-perennial rye, Allergy Hives Verified 01/14/21 19:17 standar [grass poll-perennial rye,std] Latex, Natural Rubber Allergy skin Verified 01/14/21 19:17 sensitivity lorazepam [From Ativan] Allergy Hyperactivi Verified 01/14/21 19:17 ty midazolam HCl [From Versed] Allergy Hyperactivi Verified 01/14/21 19:17 ty silver Allergy skin Verified 01/14/21 19:17 [From Tegaderm AG Mesh] sensitivity Sulfa (Sulfonamide Allergy Hyperactivi Verified 01/14/21 19:17 Antibiotics) ty Home Meds: Home Meds . [No Known Home Meds] 12/26/20 [History] Past Medical History HEENT History: Reports: Impaired Vision, Other (See Below) Other HEENT History: wears glasses Cardiovascular History: Reports: Other (See Below) Other Cardiovascular History: Postural Orthostatic Tachycardia Syndrome, states he has a "low blood volume", hx of Rheumatic fever x3 as a child - "broke the blood brain barrier" causing extreme joint pain Respiratory History: Reports: Asthma Other Respiratory History: hx of asthma as a child, rarely uses inhaler now Gastrointestinal History: Reports: Cholelithiasis, GERD, Hiatal Hernia Genitourinary History: Reports: None Musculoskeletal History: Reports: Back Pain, Chronic, Neck Pain, Chronic, RA Other Musculoskeletal History: OCAMPO, arthritis, auto immune disfunction Neurological History: Reports: Migraines, Other (See Below) Other Neuro History: has a "pocket of fluid" at C3-7, hx of motion sickness Psychiatric History: Reports: Anxiety, Depression Other Psychiatric History: Slight Autism Endocrine/Metabolic History: Reports: Other (See Below) Other Endocrine/Metabolic History: hx of hypoglycemia Hematologic History: Reports: Anemia Immunologic History: Reports: Immunosuppression Oncologic (Cancer) History: Reports: None Other Dermatologic History: sensitive to adhesives - Infectious Disease History Infectious Disease History: Reports: Chicken Pox, Hepatitis A, Novel Coronavirus - Past Surgical History Head Surgeries/Procedures: Reports: None HEENT Surgical History: Reports: Tonsillectomy Cardiovascular Surgical History: Reports: Vascular Surgery Other Cardiovascular Surgeries/Procedures: Insertion of Port-a-Cath GI Surgical History: Reports: Cholecystectomy, Hamilton Fundoplication Social & Family History - Family History Family Medical History: No Pertinent Family History - Caffeine Use Caffeine Use: Reports: None - Living Situation & Occupation Living situation: Reports: Single, with Family ED ROS GENERAL - Review of Systems Review Of Systems: See Below Free Text/Narrative/Comment: General: Per HPI ENT: No sore throat. Neck: No neck stiffness. Respiratory: No shortness of breath. Cardiac: No chest pain. Gastrointestinal: No nausea, vomiting or abdominal pain. Musculoskeletal: No myalgias/arthralgias. Neurologic: No headache. ED EXAM, GENERAL - Physical Exam Exam: See Below Free Text/Narrative:: General Appearance: No acute distress, appears comfortable Skin: No rash HEENT: Normocephalic/atraumatic, sclera anicteric, mucous membranes dry Neck: Normal range of motion Chest and Lungs: Bilateral breath sounds, clear to auscultation Cardiovascular: Regular rate and rhythm, no murmur Abdomen: Soft, non-tender Back: Normal Musculoskeletal: No edema or tenderness Neurologic: Awake, alert, no obvious deficits, moving all extremities Psychiatric: Somewhat pressured and rapid speech thoughts are linear and goal- directed no disorganization #1 Interpretation EKG Date: 08/10/21 Time: 12:59 EKG Interpretation Comments: Sinus rhythm with a rate of 67 normal axis and intervals no acute ischemia unremarkable EKG Course - Vital Signs Last Recorded V/S: Last Vital Signs Temp 97.4 F 08/10/21 15:04 Pulse 61 08/10/21 15:04 Resp 17 08/10/21 15:04 BP 108/48 L 08/10/21 15:04 Pulse Ox 100 08/10/21 15:04 - Orders/Labs/Meds Orders: Active Orders 24 hr Category Date Time Status Sodium Chloride 0.9% [Saline Flush] Med 08/10/21 12:56 Active 10 ml FLUSH ASDIRECTED PRN Sodium Chloride 0.9% [Saline Flush] Med 08/10/21 12:56 Active 2.5 ml FLUSH ASDIRECTED PRN Saline Lock Insert [OM.PC] Stat Oth 08/10/21 12:56 Ordered Medication Orders Sodium Chloride (Sodium Chloride 0.9% 10 Ml Syringe) 10 ml FLUSH ASDIRECTED PRN PRN Reason: Keep Vein Open Last Admin: 08/10/21 13:32 Dose: 10 ml Documented by: [id number] Sodium Chloride (Sodium Chloride 0.9% 2.5 Ml Syringe) 2.5 ml FLUSH ASDIRECTED PRN PRN Reason: Keep Vein Open Last Admin: 08/10/21 13:32 Dose: 2.5 ml Documented by: [email or web address] Labs: Laboratory Tests 08/10/21 08/10/21 Range/Units 13:00 13:00 WBC 9.45 (4.0-11.0) K/uL RBC 5.25 (4.50-5.90) M/uL Hgb 15.8 (13.0-17.0) g/dL Hct 44.1 (38.0-50.0) % MCV 84.0 (80.0-98.0) fL MCH 30.1 (27.0-32.0) pg MCHC 35.8 (31.0-37.0) g/dL RDW Std Deviation 37.8 (28.0-62.0) fl RDW Coeff of Mee 12 (11.0-15.0) % Plt Count 314 (150-400) K/uL MPV 9.40 (7.40-12.00) fL Neut % (Auto) 80.5 H (48.0-80.0) % Lymph % (Auto) 14.0 L (16.0-40.0) % Saunders % (Auto) 5.3 (0.0-15.0) % Eos % (Auto) 0.1 (0.0-7.0) % Baso % (Auto) 0.1 (0.0-1.5) % Neut # (Auto) 7.6 H (1.4-5.7) K/uL Lymph # (Auto) 1.3 (0.6-2.4) K/uL Saunders # (Auto) 0.5 (0.0-0.8) K/uL Eos # (Auto) 0.0 (0.0-0.7) K/uL Baso # (Auto) 0.0 (0.0-0.1) K/uL Nucleated RBC % 0.0 /100WBC Nucleated RBCs # 0 K/uL Sodium 139 (136-148) mmol/L Potassium 4.2 (3.5-5.1) mmol/L Chloride 103 (98-107) mmol/L Carbon Dioxide 22.0 (21.0-32.0) mmol/L BUN 11 (7.0-18.0) mg/dL Creatinine 1.0 (0.8-1.3) mg/dL Est Cr Clr Drug Dosing 87.72 mL/min Estimated GFR (MDRD) > 60.0 ml/min Glucose 90 (74-106) mg/dL Calcium 10.0 (8.5-10.1) mg/dL Magnesium 2.0 (1.8-2.4) mg/dL Total Bilirubin 1.2 H (0.2-1.0) mg/dL AST 28 (15-37) IU/L ALT 30 (14-63) IU/L Alkaline Phosphatase 90 (46-116) U/L Total Protein 8.0 (6.4-8.2) g/dL Albumin 4.8 (3.4-5.0) g/dL Globulin 3.2 (2.6-4.0) g/dL Albumin/Globulin Ratio 1.5 (0.9-1.6) Meds: Medications Generic Name Dose Route Start Last Admin Trade Name Freq PRN Reason Stop Dose Admin Sodium Chloride 10 ml 08/10/21 12:56 08/10/21 13:32 Sodium Chloride 0.9% 10 Ml Syringe FLUSH 10 ml ASDIRECTED PRN Administration Keep Vein Open Sodium Chloride 2.5 ml 08/10/21 12:56 08/10/21 13:32 Sodium Chloride 0.9% 2.5 Ml Syringe FLUSH 2.5 ml ASDIRECTED PRN Administration Keep Vein Open Discontinued Medications Generic Name Dose Route Start Last Admin Trade Name Roberto PRN Reason Stop Dose Admin Sodium Chloride 1,000 mls @ 999 mls/hr 08/10/21 12:57 08/10/21 13:22 Normal Saline IV 08/10/21 13:57 999 mls/hr .Bolus ONE Administration Ondansetron HCl 4 mg 08/10/21 14:35 08/10/21 14:39 Ondansetron 4 Mg/2 Ml Sdv IVPUSH 08/10/21 14:36 4 mg ONETIME ONE Administration Departure - Departure Time of Disposition: 15:06 Disposition: Home, Self-Care 01 Condition: Good Clinical Impression: Dehydration - Discharge Information *PRESCRIPTION DRUG MONITORING PROGRAM REVIEWED*: Not Applicable *COPY OF PRESCRIPTION DRUG MONITORING REPORT IN PATIENT [place]: Not Applicable Instructions: Dehydration, Adult Referrals: PCP,None [Primary Care Provider] - Forms: ED Department Discharge Additional Instructions: Your symptoms are most likely due to dehydration that resulted from your alcohol intake last night and the subsequent vomiting this morning. I encourage you to cut down on your alcohol use and try to stay hydrated particularly with your pots syndrome. Your labs were normal and showed no signs of electrolyte problems and your EKG was normal indicating no problems with your heart at this time. The following information is given to patients seen in the emergency department who are being discharged to home. This information is to outline your options for follow-up care. We provide all patients seen in our emergency department with a follow-up referral. The need for follow-up, as well as the timing and circumstances, are variable depending upon the specifics of your emergency department visit. If you don't have a primary care physician on staff, we will provide you with a referral. We always advise you to contact your personal physician following an emergency department visit to inform them of the circumstance of the visit and for follow-up with them and/or the need for any referrals to a consulting specialist. The emergency department will also refer you to a specialist when appropriate. This referral assures that you have the opportunity for follow-up care with a specialist. All of these measure are taken in an effort to provide you with optimal care, which includes your follow-up. Under all circumstances we always encourage you to contact your private physician who remains a resource for coordinating your care. When calling for follow-up care, please make the office aware that this follow-up is from your recent emergency room visit. If for any reason you are refused follow-up, please contact the [facility] Emergency Department at and asked to speak to the emergency department charge nurse. Sepsis Event Note (ED) - Focused Exam Vital Signs: Vital Signs Temp Pulse Resp BP Pulse Ox 08/10/21 15:04 97.4 F 61 17 108/48 L 100 08/10/21 13:05 96.6 F L 79 18 100/59 L 100 - My Orders Last 24 Hours: My Active Orders 08/10/21 12:56 Sodium Chloride 0.9% [Saline Flush] 10 ml FLUSH ASDIRECTED PRN Sodium Chloride 0.9% [Saline Flush] 2.5 ml FLUSH ASDIRECTED PRN Saline Lock Insert [OM.PC] Stat - Assessment/Plan Last 24 Hours: My Active Orders 08/10/21 12:56 Sodium Chloride 0.9% [Saline Flush] 10 ml FLUSH ASDIRECTED PRN Sodium Chloride 0.9% [Saline Flush] 2.5 ml FLUSH ASDIRECTED PRN Saline Lock Insert [OM.PC] Stat Assessment:: 20-year-old male nontoxic in appearance with dehydrated presenting with signs and symptoms most consistent with alcohol washout syndrome neurologic exam is unremarkable. I do wonder about some type of psychiatric overlay as he has somewhat rapid and pressured speech and is allergic to every benzodiazepine. That said he is nontoxic in appearance his neurologic exam is nonfocal. IV fluid is been ordered labs including magnesium to assess electrolytes and will reassess. Patient may have pots syndrome right now his vital signs are good. 1345: Patient's vital signs remained good. Labs are normal he is resting comfortably he still has about 800 mL left to go in his normal saline infusion. Following this will reassess. 1515: Patient tolerated p.o. here symptoms have improved he was given a dose of Zofran. Patient felt stable for discharge.
[2021-08-10 13:37] LABS: BLOOD UREA NITROGEN,BUN 11 mg/dL (7.0-18.0); CHLORIDE,CL 103 mmol/L (98-107); GLUCOSE RANDOM 90 mg/dL (74-106); POTASSIUM,K 4.2 mmol/L (3.5-5.1); SODIUM,NA 139 mmol/L (136-148)
[2021-08-10] MEDS ORDERED: Ondansetron 4 MG/2 ML SDV IVPUSH ONE (14:35)
[2021-08-10 15:06] VITALS: BP 108/48; PULSE 61
== END 2021-08-10 15:16 | disposition home or self-care (01) ==
LOC: MW.ED 12:53
DX: E86.0 Dehydration (principal); Z91.048 Other nonmedicinal substance allergy status; Z88.1 Allergy status to other antibiotic agents; Z88.5 Allergy status to narcotic agent; Z88.2 Allergy status to sulfonamides
CPT/HCPCS: 36415; 80053; 83735; 85025; 93005; 96374; 99285; J2405; J7030

== ENCOUNTER 2022-12-06 21:39 | Emergency (ER) | payer SELFPAY ==
[2022-12-06] MEDS ORDERED: Meclizine 25 MG Tab PO ONE (22:14)
[2022-12-06] MEDS ORDERED: Sodium Chloride 0.9% 1,000 ML IV ONE (22:14)
[2022-12-06 22:56] LABS: BLOOD UREA NITROGEN,BUN 12 mg/dL (7.0-18.0); CHLORIDE,CL 103 mmol/L (98-107); ESTIMATED GFR 108 mL/min (>60); GLUCOSE RANDOM 125 mg/dL (74-106); POTASSIUM,K 3.1 mmol/L (3.5-5.1); SODIUM,NA 138 mmol/L (136-148)
[2022-12-06] MEDS ORDERED: Potassium Chloride 20 MEQ Tab.ER PO ONE (23:55)
[2022-12-06] MEDS ORDERED: Magnesium Oxide 400 MG Tab PO ONE (23:55)
[2022-12-07 00:11] LABS: CORONAVIRUS COVID-19 NAA NEGATIVE (NEGATIVE); INFLUENZA A NAA NEGATIVE (NEGATIVE); INFLUENZA B NAA NEGATIVE (NEGATIVE)
[2022-12-07 00:35] VITALS: BP 120/84; PULSE 62
== END 2022-12-07 00:37 | disposition home or self-care (01) ==
LOC: MW.ED 21:39
DX: R55 Syncope and collapse (principal); Z88.1 Allergy status to other antibiotic agents; Z91.048 Other nonmedicinal substance allergy status; Z91.040 Latex allergy status; Z88.2 Allergy status to sulfonamides; Z86.16 Personal history of COVID-19; Z90.49 Acquired absence of other specified parts of digestive tract; Z20.822 Contact with and (suspected) exposure to COVID-19
CPT/HCPCS: 0240U; 36415; 71045; 80053; 80307; 83735; 84443; 84484; 85025; 93005; 96360; 99285; A9270; J7030; 93010; 99283

== ENCOUNTER 2023-04-17 11:03 | Emergency (ER) | payer SELFPAY ==
[2023-04-17] MEDS ORDERED: Sodium Chloride 0.9% 2.5 ML Syringe FLUSH PRN (12:04)
[2023-04-17] MEDS ORDERED: Sodium Chloride 0.9% 1,000 ML IV STA ×2 (12:04)
[2023-04-17] MEDS ORDERED: Sodium Chloride 0.9% 10 ML Syringe FLUSH PRN (12:04)
[2023-04-17 12:26] LABS: BASOPHILS PERCENT AUTO 0.2 % (0.0-1.5); EOSINOPHILS ABSOLUTE AUTO 0.1 K/uL (0.0-0.7); HEMATOCRIT 42.3 % (38.0-50.0); HEMOGLOBIN 14.1 g/dL (13.0-17.0); LYMPHOCYTES PERCENT AUTO 35.3 % (16.0-40.0); MEAN CORPUSCULAR HEMOGLOBIN 29.2 pg (27.0-32.0); MEAN CORPUSCULAR HGB CONC 33.3 g/dL (31.0-37.0); MEAN CORPUSCULAR VOLUME 87.6 fL (80.0-98.0); MONOCYTES ABSOLUTE AUTO 0.7 K/uL (0.0-0.8); MONOCYTES PERCENT AUTO 12.8 % (0.0-15.0); NEUTROPHILS ABSOLUTE AUTO 2.9 K/uL (1.4-5.7); NEUTROPHILS PERCENT AUTO 50.7 % (48.0-80.0); NRBC ABSOLUTE 0 K/uL; PLATELET COUNT,PLT 233 K/uL (150-400); RED BLOOD CELL COUNT 4.83 M/uL (4.50-5.90); WHITE BLOOD CELL COUNT,WBC 5.72 K/uL (4.0-11.0)
[2023-04-17 12:49] LABS: A/G RATIO 1.4 (0.9-1.6); BILIRUBIN TOTAL 0.7 mg/dL (0.2-1.0); CALCIUM 9.1 mg/dL (8.5-10.1); CARBON DIOXIDE,CO2 28.5 mmol/L (21.0-32.0); CREATININE 0.9 mg/dL (0.8-1.3); EST CRCL DRUG DOSING (CG) 92.57 mL/min; MAGNESIUM 1.9 mg/dL (1.8-2.4); POTASSIUM,K 4.6 mmol/L (3.5-5.1); PROTEIN TOTAL,TP 6.9 g/dL (6.4-8.2)
[2023-04-17 14:13] VITALS: BP 98/65; PULSE 71
== END 2023-04-17 14:11 | disposition home or self-care (01) ==
LOC: MW.ED 11:03
DX: F41.9 Anxiety disorder, unspecified (principal); G90.A Postural orthostatic tachycardia syndrome [POTS]; J45.909 Unspecified asthma, uncomplicated; K21.9 Gastro-esophageal reflux disease without esophagitis; M19.90 Unspecified osteoarthritis, unspecified site; F17.210 Nicotine dependence, cigarettes, uncomplicated; Z71.1 Person with feared health complaint in whom no diagnosis is made; Z91.048 Other nonmedicinal substance allergy status; Z88.1 Allergy status to other antibiotic agents; Z88.8 Allergy status to other drugs, medicaments and biological substances; Z91.040 Latex allergy status; Z88.2 Allergy status to sulfonamides
CPT/HCPCS: 36415; 80053; 83735; 85025; 93005; 96360; 96361; 99285; J3490; J7030; 93010; 99283

== ENCOUNTER 2025-08-12 09:28 | Emergency (ER) | payer SELFPAY ==
[2025-08-12 10:51] VITALS: BP 99/66; PULSE 66
== END 2025-08-12 10:50 | disposition home or self-care (01) ==
LOC: MW.ED 09:28
DX: J02.9 Acute pharyngitis, unspecified (principal); J39.8 Other specified diseases of upper respiratory tract; R51.9 Headache, unspecified; J45.909 Unspecified asthma, uncomplicated; Z86.16 Personal history of COVID-19; Z90.49 Acquired absence of other specified parts of digestive tract; Z88.1 Allergy status to other antibiotic agents; Z88.2 Allergy status to sulfonamides; Z88.8 Allergy status to other drugs, medicaments and biological substances; Z91.040 Latex allergy status; Z91.048 Other nonmedicinal substance allergy status; Z79.899 Other long term (current) drug therapy
CPT/HCPCS: 87426; 87651; 99284; A9270; J8540; 99283

== ENCOUNTER 2025-10-05 21:23 | Emergency (ER) | payer SELFPAY ==
[2025-10-05 21:56] LABS: BASOPHILS ABSOLUTE AUTO 0.01 K/uL (0.00-0.20); BASOPHILS PERCENT AUTO 0.1 % (0.0-1.0); EOSINOPHILS ABSOLUTE AUTO 0.00 K/uL (0.00-0.45); EOSINOPHILS PERCENT AUTO 0.0 % (0.0-6.0); IMMATURE GRAN ABSOLUTE AUTO 0.09 K/uL (0.00-0.05); IMMATURE GRAN PERCENT AUTO 0.7 % (0.0-0.4); LYMPHOCYTES ABSOLUTE AUTO 2.07 K/uL (1.00-4.80); LYMPHOCYTES PERCENT AUTO 17.0 % (24.0-44.0); MEAN PLATELET VOLUME 9.2 fL (9.4-12.4); MONOCYTES ABSOLUTE AUTO 1.21 K/uL (0.00-0.80); MONOCYTES PERCENT AUTO 9.9 % (0.0-8.0); NEUTROPHILS ABSOLUTE AUTO 8.79 K/uL (1.80-7.70); NEUTROPHILS PERCENT AUTO 72.3 % (41.0-71.0); NRBC ABSOLUTE 0.00 K/uL (0.00-0.02); NRBC PERCENT 0.0 /100WBC (0.0-0.2); PLATELET COUNT,PLT 237 K/uL (150-400); RED BLOOD CELL COUNT 4.38 M/uL (4.52-5.90); WHITE BLOOD CELL COUNT,WBC 12.17 K/uL (3.9-11.3)
[2025-10-05] MEDS: Ketorolac 30 MG/ML SDV IVPUSH ONE (22:00)
[2025-10-05] MEDS: Ondansetron 4 MG/2 ML SDV IVPUSH ONE (22:00)
[2025-10-05 22:15] LABS: A/G RATIO 1.5 (0.9-1.6); ALANINE AMINOTRANSFERASE,ALT 18 IU/L (14-63); ASPARTATE AMNIOTRANSFERASE,AST 17 IU/L (15-37); BILIRUBIN TOTAL 0.5 mg/dL (0.2-1.0); BLOOD UREA NITROGEN,BUN 11 mg/dL (7.0-18.0); CARBON DIOXIDE,CO2 20.8 mmol/L (21.0-32.0); CHLORIDE,CL 102 mmol/L (98-107); CREATININE 1.1 mg/dL (0.8-1.3); GLUCOSE RANDOM 176 mg/dL (74-106); POTASSIUM,K 3.5 mmol/L (3.5-5.1); PROTEIN TOTAL,TP 6.3 g/dL (6.4-8.2); SODIUM,NA 136 mmol/L (136-148)
[2025-10-05 22:18] LABS: ESTIMATED GFR 94 mL/min (>60)
[2025-10-06 00:51] VITALS: BP 94/57; PULSE 63
== END 2025-10-06 00:51 | disposition home or self-care (01) ==
LOC: EDBD 21:23 → MERGE 21:23 → MW.ED 21:23
DX: R55 Syncope and collapse (principal); E86.0 Dehydration; Z91.040 Latex allergy status; Z88.8 Allergy status to other drugs, medicaments and biological substances; Z88.4 Allergy status to anesthetic agent
CPT/HCPCS: 36415; 70450; 80053; 84484; 85025; 93005; 96361; 96374; 96375; 99285; J1885; J2405; J7030; 99283